=== PATIENT | male | born 1930 | race Caucasian/White ===

== ENCOUNTER 2017-01-03 13:38 | Inpatient (IN) | payer OTHER ==
[~2017-01-03] VITALS: Ht 167.6 cm; Wt 79.4 kg
[~2017-01-03 13:38] MED LIST: ALLO100T PO; AMLO10TA2 PO; ASPI-630 PO; CYAN10005 PO; FURO40TA4 PO; GLIP5TAB10 PO; MULT-208 PO; PRAV80TA2 PO; TRIA15CR3 TP
--- NOTE | 2017-01-03 13:48 | PHYS DOC ---
Past Medical History Past Medical History: CAD, Diabetes-Type II, Hypertension, Renal Disease, Unknown Additional Past Medical Histor: GOUT, HIGH CHOLESTEROL, Past Surgical History: Tonsillectomy Additional Past Surgical Histo: QUAD BIPASS 2006, Alcohol Use: None Drug Use: None Adult General Chief Complaint Chief Complaint: DEHYDRATION HPI HPI Patient is a 86 year old male who presents with nausea. The history is obtained by the because the patient denies any symptoms. She states overnight didn't sleep well because he is complaining about nausea. Denies any vomiting or abdominal pain chest pain or dysuria. Review of Systems Review of Systems Constitutional: Denies fever or chills [] Eyes: Denies change in visual acuity, redness, or eye pain [] HENT: Denies nasal congestion or sore throat [] Respiratory: Denies cough or shortness of breath [] Cardiovascular: No additional information not addressed in HPI [] GI: Denies abdominal pain, nausea, vomiting, bloody stools or diarrhea [] : Denies dysuria or hematuria [] Musculoskeletal: Denies back pain or joint pain [] Integument: Denies rash or skin lesions [] Neurologic: Denies headache, focal weakness or sensory changes [] Endocrine: Denies polyuria or polydipsia [] Current Medications Current Medications Current Medications Medications (Trade) Dose Ordered Sig/Jonathon Start Time Stop Time Status Last Admin Dose Admin Acetaminophen (Tylenol) 650 mg Q4HRS PRN 01/03/17 15:30 Hydroxyzine HCl (Atarax) 10 mg PRN Q6HRS PRN 01/03/17 15:30 Magnesium Hydroxide (Milk Of Magnesia) 2,400 mg DAILY PRN 01/03/17 15:30 Ondansetron HCl (Zofran) 4 mg PRN Q6HRS PRN 01/03/17 15:45 Sodium Chloride 1,000 ml @ 75 mls/hr [id number] 01/03/17 15:30 Allergies Allergies Allergies Coded Allergies Type Severity Reaction Last Updated Verified No Known Allergies Allergy Unknown 08/17/15 Yes Physical Exam Physical Exam Constitutional: Well developed, well nourished, no acute distress, non-toxic appearance. [] HENT: Normocephalic, atraumatic, bilateral external ears normal, oropharynx moist, no oral exudates, nose normal. [] Eyes: PERRLA, EOMI, conjunctiva normal, no discharge. [] Neck: Normal range of motion, no tenderness, supple, no stridor. [] Cardiovascular:Heart rate regular rhythm, no murmur [] Lungs & Thorax: Bilateral breath sounds clear to auscultation [] Abdomen: Bowel sounds normal, soft, no tenderness, no masses, no pulsatile masses. [] Skin: Warm, dry, no erythema, no rash. [] Back: No tenderness, no CVA tenderness. [] Extremities: No tenderness, no cyanosis, no clubbing, ROM intact, no edema. [] Neurologic: Alert and oriented X 3, normal motor function, normal sensory function, no focal deficits noted. [] Psychologic: Affect normal, judgement normal, mood normal. [] Current Patient Data Vital Signs Vital Signs Date Time Temp Pulse Resp B/P (MAP) Pulse Ox O2 Delivery O2 Flow Rate FiO2 01/03/17 13:53 97.6 87 16 113/58 (76) 96 Room Air 97.6 Lab Values Laboratory Tests Test 01/03/17 14:00 White Blood Count 14.2 x10^3/uL (4.0-11.0) H Red Blood Count 4.57 x10^6/uL (4.30-5.70) Hemoglobin 15.1 g/dL (13.0-17.5) Hematocrit 45.6 % (39.0-53.0) Mean Corpuscular Volume 100 fL (79-100) Mean Corpuscular Hemoglobin 33 pg (25-35) Mean Corpuscular Hemoglobin Concent 33 g/dL (31-37) Red Cell Distribution Width 14.4 % (11.5-14.5) Platelet Count 182 x10^3/uL (140-400) Neutrophils (%) (Auto) 81 % (31-73) H Lymphocytes (%) (Auto) 11 % (24-48) L Monocytes (%) (Auto) 6 % (0-9) Eosinophils (%) (Auto) 1 % (0-3) Basophils (%) (Auto) 1 % (0-3) Neutrophils # (Auto) 11.5 x10^3uL (1.8-7.7) H Lymphocytes # (Auto) 1.6 x10^3/uL (1.0-4.8) Monocytes # (Auto) 0.9 x10^3/uL (0.0-1.1) Eosinophils # (Auto) 0.1 x10^3/uL (0.0-0.7) Basophils # (Auto) 0.1 x10^3/uL (0.0-0.2) Sodium Level 132 mmol/L (136-145) L Potassium Level 4.2 mmol/L (3.5-5.1) Chloride Level 98 mmol/L (98-107) Carbon Dioxide Level 24 mmol/L (21-32) Anion Gap 10 (6-14) Blood Urea Nitrogen 54 mg/dL (8-26) H Creatinine 2.2 mg/dL (0.7-1.3) H Estimated GFR (Cockcroft-Gault) 28.7 Glucose Level 180 mg/dL (70-99) H Calcium Level 9.5 mg/dL (8.5-10.1) Total Bilirubin 0.6 mg/dL (0.2-1.0) Direct Bilirubin 0.1 mg/dL (0.0-0.2) Aspartate Amino Transferase (AST) 20 U/L (15-37) Alanine Aminotransferase (ALT) 24 U/L (16-63) Alkaline Phosphatase 76 U/L (46-116) Creatine Kinase 64 U/L (39-308) Creatine Kinase MB (Mass) 2.0 ng/mL (0.0-3.6) Creatine Kinase MB Relative Index 3.1 % (0-4) Total Protein 7.3 g/dL (6.4-8.2) Albumin 3.6 g/dL (3.4-5.0) Laboratory Tests 01/03/17 14:00 Laboratory Tests 01/03/17 14:00 EKG EKG EKG shows irregular rhythm with rate [address] elevations or concerning T-wave inversion, deviation noted, QTC 407 ms, as interpreted by me. Radiology/Procedures Radiology/Procedures [] Impressions: Acute kidney injury Nausea Course & Med Decision Making Course & Med Decision Making Pertinent Labs and Imaging studies reviewed. (See chart for details) Labs show acute kidney injury. Spoke with Dr. Hart who once admitted as a full admission. Dr. Hart wants to write the orders for IV fluids etc. Basic admit orders have been written the patient's agreeable plans in stable condition this time. Dragon Disclaimer Dragon Disclaimer This electronic medical record was generated, in whole or in part, using a voice recognition dictation system. Departure Departure Impression: Primary Impression: Acute kidney failure Disposition: ADMITTED INPATIENT Admitting Physician: Andre Hart Condition: STABLE Referrals: ANDRE HART MD (PCP) Problem Qualifiers Primary Impression: Acute kidney failure Acute renal failure type: unspecified Qualified Codes: N17.9 - Acute kidney failure, unspecified TIFFANIE PADILLA MD Jan 03, 2017 13:48
[2017-01-03 14:07] LABS: BASO # 0.1 x10^3/uL (0.0-0.2); BASO % 1 % (0-3); EOS % 1 % (0-3); HEMATOCRIT 45.6 % (39.0-53.0); HEMOGLOBIN 15.1 g/dL (13.0-17.5); LYMPH # 1.6 x10^3/uL (1.0-4.8); LYMPH % 11 % (24-48); MEAN CORPUSCULAR HEMOGLOBIN 33 pg (25-35); MEAN CORPUSCULAR HGB CONC 33 g/dL (31-37); MEAN CORPUSCULAR VOLUME 100 fL (79-100); MONO % 6 % (0-9); NEUT % 81 % (31-73); PLATELET COUNT 182 x10^3/uL (140-400); RED BLOOD COUNT 4.57 x10^6/uL (4.30-5.70); RED CELL DISTRIBUTION WIDTH 14.4 % (11.5-14.5); WHITE BLOOD COUNT 14.2 x10^3/uL (4.0-11.0)
[2017-01-03 14:14] LABS: CALCIUM 9.5 mg/dL (8.5-10.1); CREATININE 2.2 mg/dL (0.7-1.3); GFR 28.7; POTASSIUM 4.2 mmol/L (3.5-5.1)
[2017-01-03 14:20] LABS: ALBUMIN 3.6 g/dL (3.4-5.0); DIRECT BILIRUBIN 0.1 mg/dL (0.0-0.2); TOTAL BILIRUBIN 0.6 mg/dL (0.2-1.0); TOTAL PROTEIN 7.3 g/dL (6.4-8.2)
[2017-01-03] MEDS ORDERED: MAGNESIUM HYDROXIDE 2,400 MG/30 ML ORAL.SUSP. PO PRN (15:30)
[2017-01-03] MEDS ORDERED: ACETAMINOPHEN 325 MG TABLET. PO PRN (15:30)
[2017-01-03] MEDS ORDERED: hydrOXYzine 10 MG TABLET PO PRN (15:30)
[2017-01-03] MEDS ORDERED: ONDANSETRON PF 4 MG/2 ML VIAL. IV PRN (15:45)
--- NOTE | 2017-01-03 15:50 | PDOC ---
Provider Note Provider Note history and physical dictated # [id number] GOOD ODOM MD Jan 03, 2017 15:50
--- NOTE | 2017-01-03 16:13 | RAD ---
Indication lower chest and abdominal pain. A single view of the chest was obtained. Comparison is made to an examination 08/17/2015. Postoperative changes are noted. Heart size is unchanged. There is some increased density at the right lung base which may be multifactorial. A fat pad is not excluded. There is no consolidated pneumonia. There is no congestive heart failure. A significant change when compared to the previous exam is not seen. IMPRESSION: No acute or focal process. No significant change
--- NOTE | 2017-01-03 16:25 | PDOC2 ---
GI CONSULT Reason For Consult: Esophageal dysphagia per for 3 weeks HPI: HPI: 86 y/o male seen in ER, does most of the talking. She says for 2-3 days he has been uncomfortable and unable to rest. When he drinks or eats, he squirms around like he has back or upper abdominal discomfort. He says foods, liquids, and pills do not get stuck in the esophagus. He has not vomited or felt nauseous. Nothing tastes good - not even water (per his ). He denies reflux and heartburn although did try Tums the past few days w/o relief. No odynophagia. No diarrhea or constipation, last stooled today. No hematochezia or melena. No NSAID use, does take ASA daily. No previous EGD. Colonoscopy ~ 5 years ago, unsure of results although other notes suggest colon polyps and diverticulosis. No liver, gallbladder, or pancreas history. Has had a rash on and off for more than 1 year. PMH: PMH: CAD, HTN, HLD, DM, CKD, gout, dementia, CABG, vasectomy, tonsillectomy FH: Family History: No pertinent hx Social History: Smoke: No ALCOHOL: none Drugs: None ROS: GEN: Denies fevers, chills, sweats HEENT: Denies blurred vision, sore throat CV: Denies chest pain RESP: Denies shortness of air, cough GI: Per HPI : Denies hematuria, dysuria ENDO: Denies weight changes NEURO: +dementia MSK: Denies weakness, joint pain/swelling SKIN:+rash Vitals: Vitals: Vital Signs Date Time Temp Pulse Resp B/P (MAP) Pulse Ox O2 Delivery O2 Flow Rate FiO2 01/03/17 13:53 97.6 87 16 113/58 (76) 96 Room Air 97.6 Labs: Labs: Laboratory Tests Test 01/03/17 14:00 White Blood Count 14.2 x10^3/uL (4.0-11.0) Red Blood Count 4.57 x10^6/uL (4.30-5.70) Hemoglobin 15.1 g/dL (13.0-17.5) Hematocrit 45.6 % (39.0-53.0) Mean Corpuscular Volume 100 fL (79-100) Mean Corpuscular Hemoglobin 33 pg (25-35) Mean Corpuscular Hemoglobin Concent 33 g/dL (31-37) Red Cell Distribution Width 14.4 % (11.5-14.5) Platelet Count 182 x10^3/uL (140-400) Neutrophils (%) (Auto) 81 % (31-73) Lymphocytes (%) (Auto) 11 % (24-48) Monocytes (%) (Auto) 6 % (0-9) Eosinophils (%) (Auto) 1 % (0-3) Basophils (%) (Auto) 1 % (0-3) Neutrophils # (Auto) 11.5 x10^3uL (1.8-7.7) Lymphocytes # (Auto) 1.6 x10^3/uL (1.0-4.8) Monocytes # (Auto) 0.9 x10^3/uL (0.0-1.1) Eosinophils # (Auto) 0.1 x10^3/uL (0.0-0.7) Basophils # (Auto) 0.1 x10^3/uL (0.0-0.2) Sodium Level 132 mmol/L (136-145) Potassium Level 4.2 mmol/L (3.5-5.1) Chloride Level 98 mmol/L (98-107) Carbon Dioxide Level 24 mmol/L (21-32) Anion Gap 10 (6-14) Blood Urea Nitrogen 54 mg/dL (8-26) Creatinine 2.2 mg/dL (0.7-1.3) Estimated GFR (Cockcroft-Gault) 28.7 Glucose Level 180 mg/dL (70-99) Calcium Level 9.5 mg/dL (8.5-10.1) Total Bilirubin 0.6 mg/dL (0.2-1.0) Direct Bilirubin 0.1 mg/dL (0.0-0.2) Aspartate Amino Transf (AST/SGOT) 20 U/L (15-37) Alanine Aminotransferase (ALT/SGPT) 24 U/L (16-63) Alkaline Phosphatase 76 U/L (46-116) Creatine Kinase 64 U/L (39-308) Creatine Kinase MB (Mass) 2.0 ng/mL (0.0-3.6) Creatine Kinase MB Relative Index 3.1 % (0-4) Total Protein 7.3 g/dL (6.4-8.2) Albumin 3.6 g/dL (3.4-5.0) Allergies: Coded Allergies: No Known Allergies (Verified Allergy, Unknown, 08/17/15) Medications: Please see EMR. Imaging: Imaging: CXR PENDING PE: GEN: NAD HEENT: Atraumatic, PERRL LUNGS: CTAB anteriorly HEART: RRR ABD: NABS, S/ND/NT EXTREMITY: No edema SKIN: +rash (arms, torso) NEURO/PSYCH: A & O 3, probably a little confused A/P: A/P: Abnormal deglutition -discomfort in back and upper abd w/ eating and drinking x 2-3 days Rash -per derm -- Will check barium swallow. ?PPI Other per Dr. Mitchell. DALJIT DRISCOLL Jan 03, 2017 16:25
[2017-01-03 16:58] LABS: BILIRUBIN,URINE NEGATIVE (NEG); GLUCOSE,URINE NEGATIVE (NEG); NITRITE,URINE NEGATIVE (NEG); PROTEIN,URINE NEGATIVE (NEG-TRACE); UROBILINOGEN,URINE 0.2 mg/dL (0.2 mg/dL)
[2017-01-03 17:11] LABS: RBC,URINE 0 /HPF (0-2); WBC,URINE OCC /HPF (0-4)
[2017-01-03 17:12] LABS: BACTERIA,URINE 0 /HPF (0-FEW); SQUAMOUS EPITHELIAL CELL,UR OCC /LPF
--- NOTE | 2017-01-03 17:13 | RAD ---
Examination: Ultrasound kidneys History: History of renal injury Comparison: 08/19/2015. Findings: The right kidney measures 10.5 x 4.4 x 5.8 cm The left kidney measures 11.0x 4.8 x 5.1 cm. The evaluation of the lower poles of the bilateral kidneys is somewhat limited. The urinary bladder volume is 653 cc. Bilateral ureteral jets identified. Impression Unremarkable visualized exam. Evaluation of the lower poles of the bilateral kidneys is somewhat limited.
[2017-01-03 17:20] VITALS: BP 104/54
[2017-01-03 19:00] VITALS: BP 104/73
[2017-01-03] MEDS: glipiZIDE 5 MG TABLET PO SCH (19:03)
[2017-01-03] MEDS: IV NORMAL SALINE 1000ML BAG 1,000 ML IV SCH (20:44)
[2017-01-03] MEDS: ATORVASTATIN CALCIUM 20 MG TABLET PO SCH (20:45)
[2017-01-03] MEDS: MINERAL OIL/PETROLATUM TOPICAL CREAM 113GM JAR. TP SCH (20:46)
[2017-01-03] MEDS ORDERED: CLOB15CR TP (22:02)
[2017-01-03 22:57] VITALS: BP 109/65
[2017-01-04 03:00] VITALS: BP 129/55
[2017-01-04] MEDS: IV NORMAL SALINE 1000ML BAG 1,000 ML IV SCH ×2 (04:50→21:54)
--- NOTE | 2017-01-04 04:56 | ACF ---
Admission Forms Criteria RENAL FAILURE, ACUTE (Place 'X' for any and all applicable criteria): Admission is indicated for ALL (I and II) of the following[A](1)(2)(3)(4)(8)(9)( 10)(11)(12): [X]I. Acute renal failure as indicated by 1 or more of the following: [X] a) A 3-fold rise in serum creatinine from baseline b) Serum creatinine > 4 mg/dL (354 mol/L) with an acute rise > 0.5 mg/dL (44.2 mol/L) c) Reduction of > 75% in estimated glomerular filtration rate from baseline d) Estimated glomerular filtration rate < 35 mL/min/1.73m2(0.59 mL/sec/1.73m2 ) in a child up to 18 years of age e) Anuria indicated by ALL the following: i) Adequate volume status ii) Cessation of urine output indicated by 1 or more of the followin) Urine output < 0.3 mL/kg/hr for 24 hours) 2) Anuria (urine output < 0.1 mL/kg/hr) for 12hours [X] II. Renal failure cannot be managed in an outpatient or observational care setting as indicating by 1 or more of the following: a) Altered mental status that is severe or persistent b) Cardiac arrhythmias of immediate concern c) Hemodynamic instability d) Significant respiratory findings (eg, pulmonary edema) that are severe (eg, Hypoxemia) or persist despite observation care treatment (eg, Tachypnea) e) Clinically significant electrolyte abnormality that requires inpatient care (eg, hyperkalemia with severe ECG findings)[B] f) Clinically significant metabolic abnormality (eg, acidosis) that is severe or persistent g) Acute treatment of renal failure (eg, renal replacement therapy ) not feasible or appropriate in observational care setting h) Clinical situation too unstable or uncertain (eg, inadequate urine output, ongoing decline in renal function, etiology unclear) i) Necessary support and caregiver ability to comply with outpatient treatment cannot be arranged in observation care timeframe (eg, within 24 hours) [X] j) Other significant finding or clinical condition judged not to be within scope of observation care III. General contraindications and/or Inappropriate clinical situations for Observational Care in patients with acute renal failure, when ANY ONE of the following is required: a) Prediction of prolongation of LOS based on ANY ONE of the following may be considered as a contraindication for observational care2, 3, 4, 5, 6, 7, 8, 9, 10, 11 i) Age > 65 yrs. ii) Patient arriving by ambulance iii) Patient with high acuity iv) Patient requiring vital sign monitoring v) Patient on IV medication b) Systolic blood pressures = [id number] c) Patient with altered mental status including delirium and other alteration of consciousness3 d) Patient whose discharge disposition will be to a long term home or rehabilitation home should not be managed in Emergency Department Observation Unit. CMS rule requires 3 days hospital stay before such placement3,13 e) Patient with failure to thrive due to broad array of etiologies3, 16,17 f) Inability to ambulate3,14 Extended stay beyond goal length of stay may be needed for [ ]a) Continuing uremic complications(25) [ ]b) Care for comorbidities(26)(27)(28)(29) [ ]c) acute renal failure [ ]d) New need for dialysis (eg, not previously arranged and prepared)(21)( 30) The original [facility] [employer] content created by [facility] has been revised. The portions of the content which have been revised are identified through the use of italic text, and [facility] has neither reviewed nor approved the modified material. All other unmodified content is copyright [facility]. Please see references footnoted in the original [facility] edition 2014 Admission Criteria Met?: Yes EDWARDO AARON Jan 04, 2017 04:56
[2017-01-04 05:40] LABS: BASO % 0 % (0-3); EOS % 1 % (0-3); HEMATOCRIT 40.7 % (39.0-53.0); HEMOGLOBIN 14.1 g/dL (13.0-17.5); LYMPH # 1.1 x10^3/uL (1.0-4.8); LYMPH % 11 % (24-48); MEAN CORPUSCULAR HEMOGLOBIN 34 pg (25-35); MEAN CORPUSCULAR HGB CONC 35 g/dL (31-37); MEAN CORPUSCULAR VOLUME 98 fL (79-100); MONO % 7 % (0-9); NEUT % 81 % (31-73); PLATELET COUNT 149 x10^3/uL (140-400); RED BLOOD COUNT 4.16 x10^6/uL (4.30-5.70); RED CELL DISTRIBUTION WIDTH 14.4 % (11.5-14.5); WHITE BLOOD COUNT 10.3 x10^3/uL (4.0-11.0)
[2017-01-04 06:06] LABS: CALCIUM 9.1 mg/dL (8.5-10.1); CREATININE 1.8 mg/dL (0.7-1.3); GFR 36.1; POTASSIUM 4.2 mmol/L (3.5-5.1)
--- NOTE | 2017-01-04 06:21 | EKG ---
[facility] [address] [place] [address] Test Date: 2017-01-03 Test Time: 16:31:35 Pat Name: ZULLY DELEON Department: Room: 576 1 Gender: M Database Support: : 1930 Requested By: GOOD ODOM Order Number: [id number] Reading MD: Emmanuel Lopez Measurements Intervals [place] Rate: 74 P: MT: QRS: -5 QRSD: 88 T: -3 QT: 362 QTc: 407 Interpretive Statements SUSPECT SR PACS Electronically Signed On 01-07-2017 11:09:26 CDT by Emmanuel Lopez
--- NOTE | 2017-01-04 06:32 | HP ---
ADMIT DATE: 01/03/2017 HISTORY OF PRESENT ILLNESS: The patient is an 86-year-old white male with a history of coronary artery disease, diabetes mellitus type 2 with diabetic nephropathy and chronic kidney disease stage 3 whose baseline serum creatinine is around 1.5, has a history of hypertension and hyperlipidemia, was seen in the office on 01/01/2017 for a followup visit. He did have a rash on his trunk and apparently took some steroid cream in the past, which was prescribed and that was clobetasol topical ointment for this rash in his truck, primarily in the abdomen which is pruritic and he has been scratching. In any case, laboratory tests were done and his BUN was 56, creatinine was 2.06, and his baseline BUN is in the low 30s and baseline serum creatinine is about 1.5. notes that he has had more confusion in the last week or so and has a 3-week history of what appears to be solid food dysphagia. After he swallows food, he is got to adjust his body in certain positions as though the food is not going down. The patient has a significant history of dementia, so he is not a reliable historian and is quite forgetful. The patient was sent to the emergency room as he was not drinking enough fluids and because of acute kidney injury. He has not had any vomiting or diarrhea. In the emergency room, his labs were also abnormal. His BUN was 54 with a creatinine of 2.2. His white count was elevated at 14.2. Denies any cough, dysuria or diarrhea. He is admitted for further evaluation and treatment of his acute kidney injury and metabolic encephalopathy as well as esophageal dysphagia and decreased intake of liquids. ALLERGIES AND INTOLERANCES: None. MEDICATIONS: Prior to admission include allopurinol 200 mg every day, aspirin 81 mg every day, clobetasol 0.05% topical ointment apply b.i.d., glipizide 5 mg b.i.d., lisinopril 20 mg every day, multiple vitamin every day, pravastatin 80 mg every day, vitamin B12 1000 mcg daily. PAST MEDICAL HISTORY: Significant for chronic kidney disease stage 3 with diabetes mellitus type 2 with diabetic nephropathy, hypertension, hyperlipidemia and gout. He has a history of synovitis in the past and has vitamin B12 deficiency. He also has impaired cognitive deficit/dementia. He has had a coronary artery bypass graft surgery in 2006, tonsillectomy, vasectomy, colonoscopy with polypectomy in 2011. He had diverticulosis as well as internal hemorrhoids during his colonoscopy in 2011. His last EGD was in 2014, at that time he had low grade reflux esophagitis and also had a benign-appearing esophageal stricture that was dilated. Colonoscopy had a tubular adenoma, diverticulosis and internal hemorrhoids. SOCIAL HISTORY: Does not drink alcohol nor does he smoke cigarettes. He is an independent ambulator. FAMILY HISTORY: Positive for his father had Alzheimer's disease as well as colon cancer and his brother had diabetes mellitus and hypertension. REVIEW OF SYSTEMS: GENERAL: There has been no fever, chills or sweats in the last few days. CARDIOVASCULAR: No chest pain. PULMONARY: No cough or shortness of breath. GASTROINTESTINAL: No constipation. SKIN: No rashes. NEUROLOGIC: He has been more confused. ENDOCRINE: He has diabetes mellitus. The rest of systems reviewed are negative except as stated in history of present illness. PHYSICAL EXAMINATION: VITAL SIGNS: Temperature is 97.6 degrees, apical pulse is regular at 87, respiratory rate 16, blood pressure 113/58, oxygen saturation 96% room air. HEENT: Eyes: Gaze is conjugate. Extraocular muscles are intact. Mouth: Tongue is midline. NECK: There is no cervical lymphadenopathy or thyroid enlargement. HEART: Reveals S1, S2. There is no S3 or murmur. LUNGS: Clear. ABDOMEN: Soft with no hepatosplenomegaly, masses or tenderness. EXTREMITIES: Lower extremities without edema. SKIN: He does have a rash. He has got a maculopapular rash with excoriation noted on his abdomen. Little bit on the lower back. His skin is dry. NEUROLOGIC: Cognition: He does not know the year, but he knows the place is [facility]. He has got 5/5 bilateral hand overhauler and biceps strength. Able to dorsi and plantar flex his feet, bend his knees and raise his legs off the bed. LABORATORY DATA REVIEW: White count was elevated at 14.2, hemoglobin 15.1, platelet count 182,000, 81 polys and 11 lymphocytes. Serum sodium is 132, potassium 4.2, chloride 98, total CO2 of 24, BUN increased to 54, creatinine increased to 2.2, blood sugar 180. Liver function tests normal. His albumin was 3.6. CPK 64. ASSESSMENT: 1. Acute kidney injury on top of chronic kidney disease stage 3. Suspect this is decreased due to decreased intake of fluid, perhaps aggravated by his esophageal stricture also. 2. Diabetes mellitus type 2 with diabetic nephropathy. 3. Chronic kidney disease stage 3. 4. Hypertension. 5. Hyperlipidemia. 6. History of gout. 7. Coronary artery disease with previous coronary bypass graft surgery. 8. History of dilatation of esophageal stricture in 2014. 9. Leukocytosis. 10. Rash with dry skin. 11. Impaired cognition/dementia. 12. Metabolic encephalopathy. PLAN: So the plan at this time is to admit him to the hospital, he is a full admit. We will start him on IV fluids with normal saline as he has hyponatremia, and we will at 75 mL an hour. We will get a renal ultrasound, obtain a urinalysis, we will put him on a full liquid diet and we will consult Dr. Mitchell for an evaluation of an EGD and possible esophageal dilatation. Consult Dr. Goodson for his rash and put him on hydroxyzine for the itching and a skin moisturizer b.i.d., and we will also consult Dr. Sim for nephrology for his acute kidney injury on top of chronic kidney disease. We will get a renal ultrasound to rule out hydronephrosis also. Discontinue the lisinopril with acute kidney injury, decrease the allopurinol to 100 mg every day for the same reason. We will order SCDs for deep vein thrombosis prophylaxis. Recheck his labs again tomorrow. We will resume his other home medications and monitor his blood sugars. GOOD ODOM MD DR: BERTO/brijesh JOB#: [id number] / [id number]
[2017-01-04 07:00] VITALS: BP 137/74
[2017-01-04] MEDS ORDERED: SIMETHICONE/SOD BICARB/CITRIC ACID PACKET. PO ONE (08:00)
[2017-01-04] MEDS ORDERED: BARIUM SULFATE 60% 355 ML SUSP PO ONE (08:00)
[2017-01-04] MEDS ORDERED: BARIUM SULFATE 340 GM SUSPENSION. PO ONE (08:30)
[2017-01-04] MEDS: MINERAL OIL/PETROLATUM TOPICAL CREAM 113GM JAR. TP SCH ×2 (09:00→21:00)
--- NOTE | 2017-01-04 09:00 | PDOC ---
PROGRESS NOTES Subjective Subjective returned from barium swallow. confused. will get ct brain without contrast. on full liquid diet. lab reviewed. renal ultrasound without hydronephrosis. complained of stomach burning with eating. will start protonix Objective Objective Vital Signs Date Time Temp Pulse Resp B/P (MAP) Pulse Ox O2 Delivery O2 Flow Rate FiO2 01/04/17 03:00 98.3 74 17 129/55 (79) 100 Room Air 98.3 Physical Exam Abdomen: Soft Heart: Regular rate, Normal S1, Normal S2 Extremities: No edema General: Alert HEENT: Atraumatic Lungs: Clear to auscultation Neck: Supple Neuro: Normal speech Psych/Mental Status: Other (confused) Skin: No rashes Assessment Assessment 1. Acute kidney injury on top of chronic kidney disease stage 3. Suspect this is decreased due to decreased intake of fluid, perhaps aggravated by his esophageal stricture also. 2. Diabetes mellitus type 2 with diabetic nephropathy. 3. Chronic kidney disease stage 3. 4. Hypertension. 5. Hyperlipidemia. 6. History of gout. 7. Coronary artery disease with previous coronary bypass graft surgery. 8. History of dilatation of esophageal stricture in 2014. 9. Leukocytosis.resolved 10. Rash with dry skin. 11. Impaired cognition/dementia. 12. Metabolic encephalopathy. Plan Plan of Care ct brain without iv contrast iv fluids barium swallow report pending start protonix full liquid diet Comment Review of Relevant I have reviewed the following items otis (where applicable) has been applied. Labs Laboratory Tests Test 01/03/17 14:00 01/03/17 16:50 01/03/17 17:11 01/03/17 20:45 White Blood Count 14.2 x10^3/uL (4.0-11.0) Red Blood Count 4.57 x10^6/uL (4.30-5.70) Hemoglobin 15.1 g/dL (13.0-17.5) Hematocrit 45.6 % (39.0-53.0) Mean Corpuscular Volume 100 fL (79-100) Mean Corpuscular Hemoglobin 33 pg (25-35) Mean Corpuscular Hemoglobin Concent 33 g/dL (31-37) Red Cell Distribution Width 14.4 % (11.5-14.5) Platelet Count 182 x10^3/uL (140-400) Neutrophils (%) (Auto) 81 % (31-73) Lymphocytes (%) (Auto) 11 % (24-48) Monocytes (%) (Auto) 6 % (0-9) Eosinophils (%) (Auto) 1 % (0-3) Basophils (%) (Auto) 1 % (0-3) Neutrophils # (Auto) 11.5 x10^3uL (1.8-7.7) Lymphocytes # (Auto) 1.6 x10^3/uL (1.0-4.8) Monocytes # (Auto) 0.9 x10^3/uL (0.0-1.1) Eosinophils # (Auto) 0.1 x10^3/uL (0.0-0.7) Basophils # (Auto) 0.1 x10^3/uL (0.0-0.2) Sodium Level 132 mmol/L (136-145) Potassium Level 4.2 mmol/L (3.5-5.1) Chloride Level 98 mmol/L (98-107) Carbon Dioxide Level 24 mmol/L (21-32) Anion Gap 10 (6-14) Blood Urea Nitrogen 54 mg/dL (8-26) Creatinine 2.2 mg/dL (0.7-1.3) Estimated GFR (Cockcroft-Gault) 28.7 Glucose Level 180 mg/dL (70-99) Calcium Level 9.5 mg/dL (8.5-10.1) Total Bilirubin 0.6 mg/dL (0.2-1.0) Direct Bilirubin 0.1 mg/dL (0.0-0.2) Aspartate Amino Transf (AST/SGOT) 20 U/L (15-37) Alanine Aminotransferase (ALT/SGPT) 24 U/L (16-63) Alkaline Phosphatase 76 U/L (46-116) Creatine Kinase 64 U/L (39-308) Creatine Kinase MB (Mass) 2.0 ng/mL (0.0-3.6) Creatine Kinase MB Relative Index 3.1 % (0-4) Total Protein 7.3 g/dL (6.4-8.2) Albumin 3.6 g/dL (3.4-5.0) Urine Color Yellow Urine Clarity Clear Urine pH 5.0 Urine Specific [place] 1.015 Urine Protein Negative mg/dL (NEG-TRACE) Urine Glucose (UA) Negative mg/dL (NEG) Urine Ketones (Stick) Negative mg/dL (NEG) Urine Blood Negative (NEG) Urine Nitrite Negative (NEG) Urine Bilirubin Negative (NEG) Urine Urobilinogen Dipstick 0.2 mg/dL (0.2 mg/dL) Urine Leukocyte Esterase Negative (NEG) Urine RBC 0 /HPF (0-2) Urine WBC Occ /HPF (0-4) Urine Squamous Epithelial Cells Occ /LPF Urine Bacteria 0 /HPF (0-FEW) Urine Hyaline Casts Occasional /HPF Urine Mucus Mod /LPF Glucose (Fingerstick) 159 mg/dL (70-99) 208 mg/dL (70-99) Test 01/04/17 05:17 01/04/17 08:50 White Blood Count 10.3 x10^3/uL (4.0-11.0) Red Blood Count 4.16 x10^6/uL (4.30-5.70) Hemoglobin 14.1 g/dL (13.0-17.5) Hematocrit 40.7 % (39.0-53.0) Mean Corpuscular Volume 98 fL (79-100) Mean Corpuscular Hemoglobin 34 pg (25-35) Mean Corpuscular Hemoglobin Concent 35 g/dL (31-37) Red Cell Distribution Width 14.4 % (11.5-14.5) Platelet Count 149 x10^3/uL (140-400) Neutrophils (%) (Auto) 81 % (31-73) Lymphocytes (%) (Auto) 11 % (24-48) Monocytes (%) (Auto) 7 % (0-9) Eosinophils (%) (Auto) 1 % (0-3) Basophils (%) (Auto) 0 % (0-3) Neutrophils # (Auto) 8.3 x10^3uL (1.8-7.7) Lymphocytes # (Auto) 1.1 x10^3/uL (1.0-4.8) Monocytes # (Auto) 0.7 x10^3/uL (0.0-1.1) Eosinophils # (Auto) 0.1 x10^3/uL (0.0-0.7) Basophils # (Auto) 0.0 x10^3/uL (0.0-0.2) Sodium Level 132 mmol/L (136-145) Potassium Level 4.2 mmol/L (3.5-5.1) Chloride Level 103 mmol/L (98-107) Carbon Dioxide Level 21 mmol/L (21-32) Anion Gap 8 (6-14) Blood Urea Nitrogen 51 mg/dL (8-26) Creatinine 1.8 mg/dL (0.7-1.3) Estimated GFR (Cockcroft-Gault) 36.1 Glucose Level 177 mg/dL (70-99) Calcium Level 9.1 mg/dL (8.5-10.1) Glucose (Fingerstick) 177 mg/dL (70-99) Laboratory Tests Test 01/03/17 14:00 01/03/17 16:50 01/03/17 17:11 01/03/17 20:45 White Blood Count 14.2 x10^3/uL (4.0-11.0) Red Blood Count 4.57 x10^6/uL (4.30-5.70) Hemoglobin 15.1 g/dL (13.0-17.5) Hematocrit 45.6 % (39.0-53.0) Mean Corpuscular Volume 100 fL (79-100) Mean Corpuscular Hemoglobin 33 pg (25-35) Mean Corpuscular Hemoglobin Concent 33 g/dL (31-37) Red Cell Distribution Width 14.4 % (11.5-14.5) Platelet Count 182 x10^3/uL (140-400) Neutrophils (%) (Auto) 81 % (31-73) Lymphocytes (%) (Auto) 11 % (24-48) Monocytes (%) (Auto) 6 % (0-9) Eosinophils (%) (Auto) 1 % (0-3) Basophils (%) (Auto) 1 % (0-3) Neutrophils # (Auto) 11.5 x10^3uL (1.8-7.7) Lymphocytes # (Auto) 1.6 x10^3/uL (1.0-4.8) Monocytes # (Auto) 0.9 x10^3/uL (0.0-1.1) Eosinophils # (Auto) 0.1 x10^3/uL (0.0-0.7) Basophils # (Auto) 0.1 x10^3/uL (0.0-0.2) Sodium Level 132 mmol/L (136-145) Potassium Level 4.2 mmol/L (3.5-5.1) Chloride Level 98 mmol/L (98-107) Carbon Dioxide Level 24 mmol/L (21-32) Anion Gap 10 (6-14) Blood Urea Nitrogen 54 mg/dL (8-26) Creatinine 2.2 mg/dL (0.7-1.3) Estimated GFR (Cockcroft-Gault) 28.7 Glucose Level 180 mg/dL (70-99) Calcium Level 9.5 mg/dL (8.5-10.1) Total Bilirubin 0.6 mg/dL (0.2-1.0) Direct Bilirubin 0.1 mg/dL (0.0-0.2) Aspartate Amino Transf (AST/SGOT) 20 U/L (15-37) Alanine Aminotransferase (ALT/SGPT) 24 U/L (16-63) Alkaline Phosphatase 76 U/L (46-116) Creatine Kinase 64 U/L (39-308) Creatine Kinase MB (Mass) 2.0 ng/mL (0.0-3.6) Creatine Kinase MB Relative Index 3.1 % (0-4) Total Protein 7.3 g/dL (6.4-8.2) Albumin 3.6 g/dL (3.4-5.0) Urine Color Yellow Urine Clarity Clear Urine pH 5.0 Urine Specific [place] 1.015 Urine Protein Negative mg/dL (NEG-TRACE) Urine Glucose (UA) Negative mg/dL (NEG) Urine Ketones (Stick) Negative mg/dL (NEG) Urine Blood Negative (NEG) Urine Nitrite Negative (NEG) Urine Bilirubin Negative (NEG) Urine Urobilinogen Dipstick 0.2 mg/dL (0.2 mg/dL) Urine Leukocyte Esterase Negative (NEG) Urine RBC 0 /HPF (0-2) Urine WBC Occ /HPF (0-4) Urine Squamous Epithelial Cells Occ /LPF Urine Bacteria 0 /HPF (0-FEW) Urine Hyaline Casts Occasional /HPF Urine Mucus Mod /LPF Glucose (Fingerstick) 159 mg/dL (70-99) 208 mg/dL (70-99) Test 01/04/17 05:17 01/04/17 08:50 White Blood Count 10.3 x10^3/uL (4.0-11.0) Red Blood Count 4.16 x10^6/uL (4.30-5.70) Hemoglobin 14.1 g/dL (13.0-17.5) Hematocrit 40.7 % (39.0-53.0) Mean Corpuscular Volume 98 fL (79-100) Mean Corpuscular Hemoglobin 34 pg (25-35) Mean Corpuscular Hemoglobin Concent 35 g/dL (31-37) Red Cell Distribution Width 14.4 % (11.5-14.5) Platelet Count 149 x10^3/uL (140-400) Neutrophils (%) (Auto) 81 % (31-73) Lymphocytes (%) (Auto) 11 % (24-48) Monocytes (%) (Auto) 7 % (0-9) Eosinophils (%) (Auto) 1 % (0-3) Basophils (%) (Auto) 0 % (0-3) Neutrophils # (Auto) 8.3 x10^3uL (1.8-7.7) Lymphocytes # (Auto) 1.1 x10^3/uL (1.0-4.8) Monocytes # (Auto) 0.7 x10^3/uL (0.0-1.1) Eosinophils # (Auto) 0.1 x10^3/uL (0.0-0.7) Basophils # (Auto) 0.0 x10^3/uL (0.0-0.2) Sodium Level 132 mmol/L (136-145) Potassium Level 4.2 mmol/L (3.5-5.1) Chloride Level 103 mmol/L (98-107) Carbon Dioxide Level 21 mmol/L (21-32) Anion Gap 8 (6-14) Blood Urea Nitrogen 51 mg/dL (8-26) Creatinine 1.8 mg/dL (0.7-1.3) Estimated GFR (Cockcroft-Gault) 36.1 Glucose Level 177 mg/dL (70-99) Calcium Level 9.1 mg/dL (8.5-10.1) Glucose (Fingerstick) 177 mg/dL (70-99) Medications Current Medications Acetaminophen (Tylenol) 650 mg Q4HRS PRN PO MILD PAIN / TEMP; Start 01/03/17 at 15:30 Magnesium Hydroxide (Milk Of Magnesia) 2,400 mg DAILY PRN PO CONSTIPATION; Start 01/03/17 at 15:30 Allopurinol (Zyloprim) 100 mg DAILY PO ; Start 01/04/17 at 09:00 Aspirin (Ecotrin) 81 mg DAILYWBKFT PO ; Start 01/04/17 at 08:00 Sodium Chloride 1,000 ml @ 75 mls/hr [id number] IV Last administered on 20:44; Start 01/03/17 at 15:30 Glipizide (Glucotrol) 5 mg BIDBFRMEAL PO Last administered on 01/03/17 19:03; Start 01/03/17 at 16:30 Atorvastatin Calcium (Lipitor) 20 mg QHS PO Last administered on 01/03/17 20: 45; Start 01/03/17 at 21:00 Cyanocobalamin (Vitamin B-12) 1,000 mcg DAILY PO ; Start 01/04/17 at 09:00 Multivitamins (Thera M Plus) 1 tab DAILY PO ; Start 01/04/17 at 09:00 Hydroxyzine HCl (Atarax) 10 mg PRN Q6HRS PRN PO ITCHING; Start 01/03/17 at 15: 30 Multi-Ingred Cream/Lotion/Oil/ Oint (Hydrocerin) 1 gemma BID TP ; Start 01/03/17 at 21:00 Ondansetron HCl (Zofran) 4 mg PRN Q6HRS PRN IV NAUSEA/VOMITING; Start 01/03/17 at 15:45 Barium Sulfate (Liquid E-Z Paque) 355 ml 1X ONCE PO Last administered on 08:29; Start 01/04/17 at 08:00; Stop 01/04/17 at 08:01; Status DC Simethicone/ Sodium Bicarb/ Citric Ac (E-Z-Gas) 1 packet 1X ONCE PO ; Start at 08:00; Stop 01/04/17 at 08:01; Status DC Barium Sulfate (E-Z-Hd) 340 gm 1X ONCE PO Last administered on 01/04/17 08:33 ; Start 01/04/17 at 08:30; Stop 01/04/17 at 08:32; Status DC Active Scripts Active Triamcinolone Acetonide 0.1% Cream (Triamcinolone Acetonide) 15 Gm Cream..g. 1 Gemma TP BID Reported Clobetasol Propionate 15 Gm Cream..g. 1 Gemma TP PRN BID PRN Pravastatin Sodium 80 Mg Tablet 1 Tab PO DAILY LAST DOSE: 08/20/15 NEXT DOSE: 08/21/15 Furosemide 40 Mg Tablet 1 Tab PO DAILY LAST DOSE: 08/20/15 NEXT DOSE: 08/21/15 AM Vitamin B-12 (Cyanocobalamin (Vitamin B-12)) 1,000 Mcg Tablet 1 Tab PO DAILY LAST DOSE: 08/20/15 NEXT DOSE: 08/21/15 Vitamin B-12 (Cyanocobalamin (Vitamin B-12)) 1,000 Mcg Tablet 1 Tab PO DAILY LAST DOSE: 08/20/15 NEXT DOSE: 08/21/15 Amlodipine Besylate 10 Mg Tablet 10 Mg PO DAILY LAST DOSE: 08/20/15 NEXT DOSE: 08/21/15 Allopurinol 100 Mg Tablet 100 Mg PO BID LAST DOSE: 08/20/15 NEXT DOSE: 08/20/15 PM Glipizide 5 Mg Tablet 1 Tab PO DAILY LAST DOSE: 08/20/15 NEXT DOSE: 08/21/15 Multi-Day Vitamins (Multivitamin) 1 Each Tablet 1 Each PO DAILY LAST DOSE: 08/20/15 NEXT DOSE: 08/21/15 Aspirin 81 Mg Tab.chew 1 Tab PO DAILY LAST DOSE: 08/20/15 NEXT DOSE: 08/21/15 AM Vitals/I & O Vital Sign - Last 24 Hours 01/03/17 01/03/17 01/03/17 01/03/17 13:53 14:20 14:50 15:20 Temp 97.6 97.6 Pulse 87 65 62 Resp 16 20 21 20 B/P (MAP) 113/58 (76) 118/54 (75) 111/59 (76) 142/53 (82) Pulse Ox 96 93 95 95 O2 Delivery Room Air Room Air 01/03/17 01/03/17 01/03/17 01/03/17 15:50 17:20 19:00 21:31 Temp 97.5 98.3 97.5 98.3 Pulse 87 65 66 Resp 22 18 15 B/P (MAP) 107/52 (70) 104/54 (71) 104/73 (83) Pulse Ox 94 97 96 O2 Delivery Room Air Room Air Room Air Room Air 01/03/17 01/04/17 22:57 03:00 Temp 98.1 98.3 98.1 98.3 Pulse 69 74 Resp 18 17 B/P (MAP) 109/65 (80) 129/55 (79) Pulse Ox 94 100 O2 Delivery Room Air Room Air GOOD ODOM MD Jan 04, 2017 09:00
--- NOTE | 2017-01-04 09:50 | RAD ---
CT head without contrast History: Altered mental status. Comparison: None. Procedure: Axial images are obtained of the head from the skull base through the vertex without IV contrast. Findings: Prominent appearing sulci likely age-related cerebral atrophy changes. The lateral ventricles and the third ventricle are prominent could be age-related cerebral atrophic changes or normal pressure hydrocephalus. No mass-effect, intracranial mass, midline shift, hemorrhage or obvious acute infarction is identified. Basilar cisterns are patent. Bone windows demonstrate no significant calvarial abnormality. The visualized paranasal sinuses appear clear. Impression: 1. Prominent appearing lateral ventricles and third ventricle could be age-related cerebral atrophic changes or normal pressure hydrocephalus. Correlate clinically.. PQRS Compliance Statement: One or more of the following individualized dose reduction techniques were utilized for this examination: 1. Automated exposure control 2. Adjustment of the mA and/or kV according to patient size 3. Use of iterative reconstruction technique
--- NOTE | 2017-01-04 10:36 | PDOC2 ---
CONSULT Date of Consult Date of Consult DATE: 01/04/17 TIME: 10:30 Reason for Consult Reason for Consult: RENAL FAILURE Referring Physician Referring Physician: ILENE Identification/Chief Complaint Chief Complaint ABNORMAL LABS Problems: Source Source: Chart review History of Present Illness Reason for Visit: THIS IS AN 86 YR OLD ADMITTED WITH ABNORMAL LABS. HE HAS NOT BEEN EATING WELL AND MORE CONFUSED THAN USUAL. HIS CR IS 2.2 C/W CARMELO. HE HAS CKD STAGE 3 WITH CR OF 1.5-1.6 AT BASELINE. HE CANNOT GIVE MUCH HX DUE TO HIS DEMENTIA. LYTES AND ACID BASE BALANCE REASONABLY STABLE Past Medical History Cardiovascular: CAD, HTN, Hyperlipidemia CENTRAL NERVOUS SYSTEM: Dementia GI: Constipation, GERD, Other (TUBULAR ADENOMA, ESOPHAGEAL STRICTURE) Musculoskeletal: Other (GOUT) Renal/: Chronic renal insuff Past Surgical History Past Surgical History: CABG Family History Family History: No Significant Social History No ALCOHOL: none Drugs: None Current Medications Current Medications Current Medications Acetaminophen (Tylenol) 650 mg Q4HRS PRN PO MILD PAIN / TEMP; Start 01/03/17 at 15:30 Magnesium Hydroxide (Milk Of Magnesia) 2,400 mg DAILY PRN PO CONSTIPATION; Start 01/03/17 at 15:30 Allopurinol (Zyloprim) 100 mg DAILY PO ; Start 01/04/17 at 09:00 Aspirin (Ecotrin) 81 mg DAILYWBKFT PO ; Start 01/04/17 at 08:00 Sodium Chloride 1,000 ml @ 75 mls/hr [id number] IV Last administered on 20:44; Start 01/03/17 at 15:30 Glipizide (Glucotrol) 5 mg BIDBFRMEAL PO Last administered on 01/03/17 19:03; Start 01/03/17 at 16:30 Atorvastatin Calcium (Lipitor) 20 mg QHS PO Last administered on 01/03/17 20: 45; Start 01/03/17 at 21:00 Cyanocobalamin (Vitamin B-12) 1,000 mcg DAILY PO ; Start 01/04/17 at 09:00 Multivitamins (Thera M Plus) 1 tab DAILY PO ; Start 01/04/17 at 09:00 Hydroxyzine HCl (Atarax) 10 mg PRN Q6HRS PRN PO ITCHING; Start 01/03/17 at 15: 30 Multi-Ingred Cream/Lotion/Oil/ Oint (Hydrocerin) 1 gemma BID TP ; Start 01/03/17 at 21:00 Ondansetron HCl (Zofran) 4 mg PRN Q6HRS PRN IV NAUSEA/VOMITING; Start 01/03/17 at 15:45 Barium Sulfate (Liquid E-Z Paque) 355 ml 1X ONCE PO Last administered on 08:29; Start 01/04/17 at 08:00; Stop 01/04/17 at 08:01; Status DC Simethicone/ Sodium Bicarb/ Citric Ac (E-Z-Gas) 1 packet 1X ONCE PO ; Start at 08:00; Stop 01/04/17 at 08:01; Status DC Barium Sulfate (E-Z-Hd) 340 gm 1X ONCE PO Last administered on 01/04/17 08:33 ; Start 01/04/17 at 08:30; Stop 01/04/17 at 08:32; Status DC Pantoprazole Sodium (Protonix) 40 mg DAILYAC PO ; Start 01/04/17 at 11:30 Active Scripts Active Triamcinolone Acetonide 0.1% Cream (Triamcinolone Acetonide) 15 Gm Cream..g. 1 Gemma TP BID Reported Clobetasol Propionate 15 Gm Cream..g. 1 Gemma TP PRN BID PRN Pravastatin Sodium 80 Mg Tablet 1 Tab PO DAILY LAST DOSE: 08/20/15 AM NEXT DOSE: 08/21/15 AM Furosemide 40 Mg Tablet 1 Tab PO DAILY LAST DOSE: 08/20/15 AM NEXT DOSE: 08/21/15 AM Vitamin B-12 (Cyanocobalamin (Vitamin B-12)) 1,000 Mcg Tablet 1 Tab PO DAILY LAST DOSE: 08/20/15 AM NEXT DOSE: 08/21/15 AM Vitamin B-12 (Cyanocobalamin (Vitamin B-12)) 1,000 Mcg Tablet 1 Tab PO DAILY LAST DOSE: 08/20/15 AM NEXT DOSE: 08/21/15 AM Amlodipine Besylate 10 Mg Tablet 10 Mg PO DAILY LAST DOSE: 08/20/15 AM NEXT DOSE: 08/21/15 AM Allopurinol 100 Mg Tablet 100 Mg PO BID LAST DOSE: 08/20/15 AM NEXT DOSE: 08/20/15 PM Glipizide 5 Mg Tablet 1 Tab PO DAILY LAST DOSE: 08/20/15 AM NEXT DOSE: 08/21/15 AM Multi-Day Vitamins (Multivitamin) 1 Each Tablet 1 Each PO DAILY LAST DOSE: 08/20/15 NEXT DOSE: 08/21/15 AM Aspirin 81 Mg Tab.chew 1 Tab PO DAILY LAST DOSE: 08/20/15 AM NEXT DOSE: 08/21/15 AM Allergies Allergies: Coded Allergies: No Known Allergies (Verified Allergy, Unknown, 08/17/15) ROS Review of System UNABLE TO OBTAIN Physical Exam General: Cooperative, No acute distress HEENT: EOMI, Other (DRY MUCOSA) Lungs: Clear to auscultation Heart: Regular rate Abdomen: Normal bowel sounds, Soft Extremities: No clubbing, No edema Skin: No rashes Neuro: Other (CONFUSED BUT NO ASYMMETRY) Psych/Mental Status: Other (CONFUSED) MUSCULOSKELETAL: Other (DIFFUSE MUSCLE ATROPHY) Vitals VITALS Vital Signs Date Time Temp Pulse Resp B/P (MAP) Pulse Ox O2 Delivery O2 Flow Rate FiO2 01/04/17 07:00 98.3 64 16 137/74 (95) 94 Room Air 98.3 Labs Labs Laboratory Tests Test 01/03/17 14:00 01/03/17 16:50 01/03/17 17:11 01/03/17 20:45 White Blood Count 14.2 x10^3/uL (4.0-11.0) Red Blood Count 4.57 x10^6/uL (4.30-5.70) Hemoglobin 15.1 g/dL (13.0-17.5) Hematocrit 45.6 % (39.0-53.0) Mean Corpuscular Volume 100 fL (79-100) Mean Corpuscular Hemoglobin 33 pg (25-35) Mean Corpuscular Hemoglobin Concent 33 g/dL (31-37) Red Cell Distribution Width 14.4 % (11.5-14.5) Platelet Count 182 x10^3/uL (140-400) Neutrophils (%) (Auto) 81 % (31-73) Lymphocytes (%) (Auto) 11 % (24-48) Monocytes (%) (Auto) 6 % (0-9) Eosinophils (%) (Auto) 1 % (0-3) Basophils (%) (Auto) 1 % (0-3) Neutrophils # (Auto) 11.5 x10^3uL (1.8-7.7) Lymphocytes # (Auto) 1.6 x10^3/uL (1.0-4.8) Monocytes # (Auto) 0.9 x10^3/uL (0.0-1.1) Eosinophils # (Auto) 0.1 x10^3/uL (0.0-0.7) Basophils # (Auto) 0.1 x10^3/uL (0.0-0.2) Sodium Level 132 mmol/L (136-145) Potassium Level 4.2 mmol/L (3.5-5.1) Chloride Level 98 mmol/L (98-107) Carbon Dioxide Level 24 mmol/L (21-32) Anion Gap 10 (6-14) Blood Urea Nitrogen 54 mg/dL (8-26) Creatinine 2.2 mg/dL (0.7-1.3) Estimated GFR (Cockcroft-Gault) 28.7 Glucose Level 180 mg/dL (70-99) Calcium Level 9.5 mg/dL (8.5-10.1) Total Bilirubin 0.6 mg/dL (0.2-1.0) Direct Bilirubin 0.1 mg/dL (0.0-0.2) Aspartate Amino Transf (AST/SGOT) 20 U/L (15-37) Alanine Aminotransferase (ALT/SGPT) 24 U/L (16-63) Alkaline Phosphatase 76 U/L (46-116) Creatine Kinase 64 U/L (39-308) Creatine Kinase MB (Mass) 2.0 ng/mL (0.0-3.6) Creatine Kinase MB Relative Index 3.1 % (0-4) Total Protein 7.3 g/dL (6.4-8.2) Albumin 3.6 g/dL (3.4-5.0) Urine Color Yellow Urine Clarity Clear Urine pH 5.0 Urine Specific [place] 1.015 Urine Protein Negative mg/dL (NEG-TRACE) Urine Glucose (UA) Negative mg/dL (NEG) Urine Ketones (Stick) Negative mg/dL (NEG) Urine Blood Negative (NEG) Urine Nitrite Negative (NEG) Urine Bilirubin Negative (NEG) Urine Urobilinogen Dipstick 0.2 mg/dL (0.2 mg/dL) Urine Leukocyte Esterase Negative (NEG) Urine RBC 0 /HPF (0-2) Urine WBC Occ /HPF (0-4) Urine Squamous Epithelial Cells Occ /LPF Urine Bacteria 0 /HPF (0-FEW) Urine Hyaline Casts Occasional /HPF Urine Mucus Mod /LPF Glucose (Fingerstick) 159 mg/dL (70-99) 208 mg/dL (70-99) Test 01/04/17 05:17 01/04/17 08:50 White Blood Count 10.3 x10^3/uL (4.0-11.0) Red Blood Count 4.16 x10^6/uL (4.30-5.70) Hemoglobin 14.1 g/dL (13.0-17.5) Hematocrit 40.7 % (39.0-53.0) Mean Corpuscular Volume 98 fL (79-100) Mean Corpuscular Hemoglobin 34 pg (25-35) Mean Corpuscular Hemoglobin Concent 35 g/dL (31-37) Red Cell Distribution Width 14.4 % (11.5-14.5) Platelet Count 149 x10^3/uL (140-400) Neutrophils (%) (Auto) 81 % (31-73) Lymphocytes (%) (Auto) 11 % (24-48) Monocytes (%) (Auto) 7 % (0-9) Eosinophils (%) (Auto) 1 % (0-3) Basophils (%) (Auto) 0 % (0-3) Neutrophils # (Auto) 8.3 x10^3uL (1.8-7.7) Lymphocytes # (Auto) 1.1 x10^3/uL (1.0-4.8) Monocytes # (Auto) 0.7 x10^3/uL (0.0-1.1) Eosinophils # (Auto) 0.1 x10^3/uL (0.0-0.7) Basophils # (Auto) 0.0 x10^3/uL (0.0-0.2) Sodium Level 132 mmol/L (136-145) Potassium Level 4.2 mmol/L (3.5-5.1) Chloride Level 103 mmol/L (98-107) Carbon Dioxide Level 21 mmol/L (21-32) Anion Gap 8 (6-14) Blood Urea Nitrogen 51 mg/dL (8-26) Creatinine 1.8 mg/dL (0.7-1.3) Estimated GFR (Cockcroft-Gault) 36.1 Glucose Level 177 mg/dL (70-99) Calcium Level 9.1 mg/dL (8.5-10.1) Glucose (Fingerstick) 177 mg/dL (70-99) Laboratory Tests Test 01/03/17 14:00 01/03/17 16:50 01/03/17 17:11 01/03/17 20:45 White Blood Count 14.2 x10^3/uL (4.0-11.0) Red Blood Count 4.57 x10^6/uL (4.30-5.70) Hemoglobin 15.1 g/dL (13.0-17.5) Hematocrit 45.6 % (39.0-53.0) Mean Corpuscular Volume 100 fL (79-100) Mean Corpuscular Hemoglobin 33 pg (25-35) Mean Corpuscular Hemoglobin Concent 33 g/dL (31-37) Red Cell Distribution Width 14.4 % (11.5-14.5) Platelet Count 182 x10^3/uL (140-400) Neutrophils (%) (Auto) 81 % (31-73) Lymphocytes (%) (Auto) 11 % (24-48) Monocytes (%) (Auto) 6 % (0-9) Eosinophils (%) (Auto) 1 % (0-3) Basophils (%) (Auto) 1 % (0-3) Neutrophils # (Auto) 11.5 x10^3uL (1.8-7.7) Lymphocytes # (Auto) 1.6 x10^3/uL (1.0-4.8) Monocytes # (Auto) 0.9 x10^3/uL (0.0-1.1) Eosinophils # (Auto) 0.1 x10^3/uL (0.0-0.7) Basophils # (Auto) 0.1 x10^3/uL (0.0-0.2) Sodium Level 132 mmol/L (136-145) Potassium Level 4.2 mmol/L (3.5-5.1) Chloride Level 98 mmol/L (98-107) Carbon Dioxide Level 24 mmol/L (21-32) Anion Gap 10 (6-14) Blood Urea Nitrogen 54 mg/dL (8-26) Creatinine 2.2 mg/dL (0.7-1.3) Estimated GFR (Cockcroft-Gault) 28.7 Glucose Level 180 mg/dL (70-99) Calcium Level 9.5 mg/dL (8.5-10.1) Total Bilirubin 0.6 mg/dL (0.2-1.0) Direct Bilirubin 0.1 mg/dL (0.0-0.2) Aspartate Amino Transf (AST/SGOT) 20 U/L (15-37) Alanine Aminotransferase (ALT/SGPT) 24 U/L (16-63) Alkaline Phosphatase 76 U/L (46-116) Creatine Kinase 64 U/L (39-308) Creatine Kinase MB (Mass) 2.0 ng/mL (0.0-3.6) Creatine Kinase MB Relative Index 3.1 % (0-4) Total Protein 7.3 g/dL (6.4-8.2) Albumin 3.6 g/dL (3.4-5.0) Urine Color Yellow Urine Clarity Clear Urine pH 5.0 Urine Specific [place] 1.015 Urine Protein Negative mg/dL (NEG-TRACE) Urine Glucose (UA) Negative mg/dL (NEG) Urine Ketones (Stick) Negative mg/dL (NEG) Urine Blood Negative (NEG) Urine Nitrite Negative (NEG) Urine Bilirubin Negative (NEG) Urine Urobilinogen Dipstick 0.2 mg/dL (0.2 mg/dL) Urine Leukocyte Esterase Negative (NEG) Urine RBC 0 /HPF (0-2) Urine WBC Occ /HPF (0-4) Urine Squamous Epithelial Cells Occ /LPF Urine Bacteria 0 /HPF (0-FEW) Urine Hyaline Casts Occasional /HPF Urine Mucus Mod /LPF Glucose (Fingerstick) 159 mg/dL (70-99) 208 mg/dL (70-99) Test 01/04/17 05:17 01/04/17 08:50 White Blood Count 10.3 x10^3/uL (4.0-11.0) Red Blood Count 4.16 x10^6/uL (4.30-5.70) Hemoglobin 14.1 g/dL (13.0-17.5) Hematocrit 40.7 % (39.0-53.0) Mean Corpuscular Volume 98 fL (79-100) Mean Corpuscular Hemoglobin 34 pg (25-35) Mean Corpuscular Hemoglobin Concent 35 g/dL (31-37) Red Cell Distribution Width 14.4 % (11.5-14.5) Platelet Count 149 x10^3/uL (140-400) Neutrophils (%) (Auto) 81 % (31-73) Lymphocytes (%) (Auto) 11 % (24-48) Monocytes (%) (Auto) 7 % (0-9) Eosinophils (%) (Auto) 1 % (0-3) Basophils (%) (Auto) 0 % (0-3) Neutrophils # (Auto) 8.3 x10^3uL (1.8-7.7) Lymphocytes # (Auto) 1.1 x10^3/uL (1.0-4.8) Monocytes # (Auto) 0.7 x10^3/uL (0.0-1.1) Eosinophils # (Auto) 0.1 x10^3/uL (0.0-0.7) Basophils # (Auto) 0.0 x10^3/uL (0.0-0.2) Sodium Level 132 mmol/L (136-145) Potassium Level 4.2 mmol/L (3.5-5.1) Chloride Level 103 mmol/L (98-107) Carbon Dioxide Level 21 mmol/L (21-32) Anion Gap 8 (6-14) Blood Urea Nitrogen 51 mg/dL (8-26) Creatinine 1.8 mg/dL (0.7-1.3) Estimated GFR (Cockcroft-Gault) 36.1 Glucose Level 177 mg/dL (70-99) Calcium Level 9.1 mg/dL (8.5-10.1) Glucose (Fingerstick) 177 mg/dL (70-99) Assessment/Plan Assessment/Plan IMP CARMELO WITH CR OF 2.2 CKD STAGE 3 WITH CR OF ABOUT 1.6 DEHYDRATION DEMENTIA POOR ORAL INTAKE HTN DM II PLAN IVF'S ENC PO LABS IN AM MARIYA RAMIRES MD Jan 04, 2017 10:36
[2017-01-04 11:00] VITALS: BP 117/48
--- NOTE | 2017-01-04 12:23 | RAD ---
Indication difficulty swallowing. The esophagus was evaluated. Both thick and thin contrast was administered. 13 spot images were obtained with the fluoroscopic unit. Prosthetic time associated with study was 3.6 minutes. No esophageal strictures or erosions were seen. Multiple tertiary contractions were identified. There was a small hiatus hernia. IMPRESSION: Presbyesophagus. Small hiatus hernia.
[2017-01-04] MEDS: CYANOCOBALAMIN (VITAMIN B-12) 1,000 MCG TABLET. PO SCH (13:03)
[2017-01-04] MEDS: MULTIVITAMIN with MINERAL TABLET. PO SCH (13:03)
[2017-01-04] MEDS: ALLOPURINOL 100 MG TABLET. PO SCH (13:03)
[2017-01-04] MEDS: PANTOPRAZOLE 40 MG TABLET.DR. PO SCH (13:03)
[2017-01-04] MEDS: glipiZIDE 5 MG TABLET PO SCH ×2 (13:03→20:59)
[2017-01-04] MEDS: ASPIRIN ENTERIC COATED 81 MG TABLET.DR. PO SCH (13:03)
--- NOTE | 2017-01-04 13:37 | PDOC ---
Subjective: Subjective: Family in room this afternoon now believe he's having gallbladder problems. Although he denies pain now and doesn't remember even having pain, he apparently reported RUQ discomfort "5 min after eating" several times (today, yesterday). No derm eval yet. Objective: Vital Signs: Vital Signs Date Time Temp Pulse Resp B/P (MAP) Pulse Ox O2 Delivery O2 Flow Rate FiO2 01/04/17 11:00 98.1 75 16 117/48 (71) 97 Room Air 98.1 Labs: Laboratory Tests Test 01/03/17 17:11 01/03/17 20:45 01/04/17 08:50 01/04/17 11:58 Glucose (Fingerstick) 159 mg/dL (70-99) 208 mg/dL (70-99) 177 mg/dL (70-99) 187 mg/dL (70-99) Imaging: Barium Swallow IMPRESSION: Presbyesophagus. Small hiatus hernia. Head CT Impression: 1. Prominent appearing lateral ventricles and third ventricle could be age- related cerebral atrophic changes or normal pressure hydrocephalus. PE: GEN: NAD ABD: BS+, soft, non-tender SKIN: +rash NEURO/PSYCH: confused A/P: Abnormal deglutition - not bothersome today -esophagram as above: presbyesophagus, hiatal hernia Post-prandial RUQ pain -- Family concerned. Abd US. DALJIT DRISCOLL Jan 04, 2017 13:37
[2017-01-04 15:00] VITALS: BP 114/49
--- NOTE | 2017-01-04 16:39 | PDOC ---
SUBJECTIVE Subjective Patient known to me. Initially seen in the summer of 2015 with itchy rash. He ultimately came to my office . two separate biopsies, different sites done. Revealed chronic dermatitis (could be anything including drug rash, nummular eczema, contact or irritant dermatitis). At his last visit with me Dec 16, 2015 he seemed to be improving. Family says he has been itchy for a long time. Patient says he is miserable. The only thing that seemed to help was clobetasol cream(a 15 gm tube cost them $100. and was not nearly enough for the extent of his rash). apparently no new meds (the family wasn't sure if allopurinol was reinstituted last winter but he has a history of severe gout). OBJECTIVE Objective Mostly excoriations arms, chest abdomen, legs, sparing genitalia. no evidence scabetic burows (no one else at home itchy). No oral lesions suggestive of lichen planus (possible evidence Koebnerization). Vital Signs Vital Signs Date Time Temp Pulse Resp B/P (MAP) Pulse Ox O2 Delivery O2 Flow Rate FiO2 01/04/17 15:00 96.6 64 16 114/49 (70) 97 Room Air 96.6 01/04/17 11:00 98.1 75 16 117/48 (71) 97 Room Air 98.1 01/04/17 07:00 98.3 64 16 137/74 (95) 94 Room Air 98.3 01/04/17 03:00 98.3 74 17 129/55 (79) 100 Room Air 98.3 01/03/17 22:57 98.1 69 18 109/65 (80) 94 Room Air 98.1 01/03/17 21:31 Room Air 01/03/17 19:00 98.3 66 15 104/73 (83) 96 Room Air 98.3 01/03/17 17:20 97.5 65 18 104/54 (71) 97 Room Air 97.5 I & O Intake and Output 01/05/17 07:00 Intake Total 240 ml Balance 240 ml Intake Oral 240 ml PHYSICAL EXAM Physical Exam as above ASSESSMENT/PLAN Assessment/Plan chronic dermatitis. doubt immunobullous disease. No eosinophilia. Can check blood for Bullous Pemphigoid antibodies. I do not have equipment to check for direct immunofluorescence with me. I suggest treat patient symptomatically, Follow up with me as outpatient. Problems: COMMENT Lab Laboratory Tests Test 01/03/17 16:50 01/03/17 17:11 01/03/17 20:45 01/04/17 05:17 Urine Color Yellow Urine Clarity Clear Urine pH 5.0 Urine Specific [place] 1.015 Urine Protein Negative mg/dL (NEG-TRACE) Urine Glucose (UA) Negative mg/dL (NEG) Urine Ketones (Stick) Negative mg/dL (NEG) Urine Blood Negative (NEG) Urine Nitrite Negative (NEG) Urine Bilirubin Negative (NEG) Urine Urobilinogen Dipstick 0.2 mg/dL (0.2 mg/dL) Urine Leukocyte Esterase Negative (NEG) Urine RBC 0 /HPF (0-2) Urine WBC Occ /HPF (0-4) Urine Squamous Epithelial Cells Occ /LPF Urine Bacteria 0 /HPF (0-FEW) Urine Hyaline Casts Occasional /HPF Urine Mucus Mod /LPF Glucose (Fingerstick) 159 mg/dL (70-99) 208 mg/dL (70-99) White Blood Count 10.3 x10^3/uL (4.0-11.0) Red Blood Count 4.16 x10^6/uL (4.30-5.70) Hemoglobin 14.1 g/dL (13.0-17.5) Hematocrit 40.7 % (39.0-53.0) Mean Corpuscular Volume 98 fL (79-100) Mean Corpuscular Hemoglobin 34 pg (25-35) Mean Corpuscular Hemoglobin Concent 35 g/dL (31-37) Red Cell Distribution Width 14.4 % (11.5-14.5) Platelet Count 149 x10^3/uL (140-400) Neutrophils (%) (Auto) 81 % (31-73) Lymphocytes (%) (Auto) 11 % (24-48) Monocytes (%) (Auto) 7 % (0-9) Eosinophils (%) (Auto) 1 % (0-3) Basophils (%) (Auto) 0 % (0-3) Neutrophils # (Auto) 8.3 x10^3uL (1.8-7.7) Lymphocytes # (Auto) 1.1 x10^3/uL (1.0-4.8) Monocytes # (Auto) 0.7 x10^3/uL (0.0-1.1) Eosinophils # (Auto) 0.1 x10^3/uL (0.0-0.7) Basophils # (Auto) 0.0 x10^3/uL (0.0-0.2) Sodium Level 132 mmol/L (136-145) Potassium Level 4.2 mmol/L (3.5-5.1) Chloride Level 103 mmol/L (98-107) Carbon Dioxide Level 21 mmol/L (21-32) Anion Gap 8 (6-14) Blood Urea Nitrogen 51 mg/dL (8-26) Creatinine 1.8 mg/dL (0.7-1.3) Estimated GFR (Cockcroft-Gault) 36.1 Glucose Level 177 mg/dL (70-99) Calcium Level 9.1 mg/dL (8.5-10.1) Test 01/04/17 08:50 01/04/17 11:58 Glucose (Fingerstick) 177 mg/dL (70-99) 187 mg/dL (70-99) ALEX HILTON MD Jan 04, 2017 16:39
[2017-01-04 19:00] VITALS: BP 108/65
[2017-01-04] MEDS: FLUOCINONIDE 0.05% TOPICAL CREAM 15 GM TUBE. TP SCH (21:00)
[2017-01-04] MEDS: ATORVASTATIN CALCIUM 20 MG TABLET PO SCH (21:00)
[2017-01-04 22:57] VITALS: BP 113/72
[2017-01-04] MEDS ORDERED: HALOPERIDOL LACTATE 5 MG/ML VIAL. IM ONE (23:00)
[2017-01-05 03:59] VITALS: BP 126/70
[2017-01-05 05:14] LABS: CALCIUM 8.5 mg/dL (8.5-10.1); CREATININE 1.7 mg/dL (0.7-1.3); GFR 38.6; POTASSIUM 4.4 mmol/L (3.5-5.1)
[2017-01-05 07:00] VITALS: BP 117/68
[2017-01-05] MEDS: IV NORMAL SALINE 1000ML BAG 1,000 ML IV SCH (07:30)
[2017-01-05] MEDS: PANTOPRAZOLE 40 MG TABLET.DR. PO SCH (07:41)
[2017-01-05] MEDS: glipiZIDE 5 MG TABLET PO SCH ×2 (07:41→17:47)
--- NOTE | 2017-01-05 08:00 | RAD ---
Limited abdominal ultrasound 01/04/2017 at 2125 hours Indication: Postprandial right upper quadrant abdominal pain. Comparison: Renal ultrasound 01/03/2017 Technique: Sonographic imaging of the right upper quadrant was performed utilizing grayscale and color Doppler. Findings: Pancreas is obscured by bowel gas. Liver is normal in echotexture without evidence for a focal mass lesion. Liver measures 12.6 cm. There is no intrahepatic or extrahepatic biliary ductal dilatation. Common bile duct measures 3 mm. Gallbladder is normal in appearance without evidence for gallstones, gallbladder wall thickening or pericholecystic fluid. Right kidney measures 11.1 x 3.9 x 4.3 cm. There is normal corticomedullary differentiation. No suspicious renal mass is identified. No renal calculi or hydronephrosis. IVC is poorly visualized. Abdominal aorta appears to be normal in caliber. No free fluid is identified in the right quadrant. Impression: 1. No sonographic evidence for cholelithiasis. 2. There is no intrahepatic or extrahepatic biliary ductal dilatation.
[2017-01-05] MEDS: MULTIVITAMIN with MINERAL TABLET. PO SCH (08:37)
[2017-01-05] MEDS: MINERAL OIL/PETROLATUM TOPICAL CREAM 113GM JAR. TP SCH ×2 (08:37→20:29)
[2017-01-05] MEDS: CYANOCOBALAMIN (VITAMIN B-12) 1,000 MCG TABLET. PO SCH (08:37)
[2017-01-05] MEDS: ALLOPURINOL 100 MG TABLET. PO SCH (08:37)
[2017-01-05] MEDS: FLUOCINONIDE 0.05% TOPICAL CREAM 15 GM TUBE. TP SCH ×2 (08:37→20:29)
[2017-01-05] MEDS: ASPIRIN ENTERIC COATED 81 MG TABLET.DR. PO SCH (08:37)
--- NOTE | 2017-01-05 10:16 | PDOC ---
G I PROGRESS NOTE Subjective Patient offers no complaints. Family still concerned re: RUQ pain pc. Objective Apparently "sundowning". Physical Exam Lungs clear. RRR Abdomen soft, not tender nor distended. Review of Relevant I have reviewed the following items otis (where applicable) has been applied. Labs Laboratory Tests Test 01/03/17 14:00 01/03/17 16:50 01/03/17 17:11 01/03/17 20:45 White Blood Count 14.2 x10^3/uL (4.0-11.0) Red Blood Count 4.57 x10^6/uL (4.30-5.70) Hemoglobin 15.1 g/dL (13.0-17.5) Hematocrit 45.6 % (39.0-53.0) Mean Corpuscular Volume 100 fL (79-100) Mean Corpuscular Hemoglobin 33 pg (25-35) Mean Corpuscular Hemoglobin Concent 33 g/dL (31-37) Red Cell Distribution Width 14.4 % (11.5-14.5) Platelet Count 182 x10^3/uL (140-400) Neutrophils (%) (Auto) 81 % (31-73) Lymphocytes (%) (Auto) 11 % (24-48) Monocytes (%) (Auto) 6 % (0-9) Eosinophils (%) (Auto) 1 % (0-3) Basophils (%) (Auto) 1 % (0-3) Neutrophils # (Auto) 11.5 x10^3uL (1.8-7.7) Lymphocytes # (Auto) 1.6 x10^3/uL (1.0-4.8) Monocytes # (Auto) 0.9 x10^3/uL (0.0-1.1) Eosinophils # (Auto) 0.1 x10^3/uL (0.0-0.7) Basophils # (Auto) 0.1 x10^3/uL (0.0-0.2) Sodium Level 132 mmol/L (136-145) Potassium Level 4.2 mmol/L (3.5-5.1) Chloride Level 98 mmol/L (98-107) Carbon Dioxide Level 24 mmol/L (21-32) Anion Gap 10 (6-14) Blood Urea Nitrogen 54 mg/dL (8-26) Creatinine 2.2 mg/dL (0.7-1.3) Estimated GFR (Cockcroft-Gault) 28.7 Glucose Level 180 mg/dL (70-99) Calcium Level 9.5 mg/dL (8.5-10.1) Total Bilirubin 0.6 mg/dL (0.2-1.0) Direct Bilirubin 0.1 mg/dL (0.0-0.2) Aspartate Amino Transf (AST/SGOT) 20 U/L (15-37) Alanine Aminotransferase (ALT/SGPT) 24 U/L (16-63) Alkaline Phosphatase 76 U/L (46-116) Creatine Kinase 64 U/L (39-308) Creatine Kinase MB (Mass) 2.0 ng/mL (0.0-3.6) Creatine Kinase MB Relative Index 3.1 % (0-4) Total Protein 7.3 g/dL (6.4-8.2) Albumin 3.6 g/dL (3.4-5.0) Urine Color Yellow Urine Clarity Clear Urine pH 5.0 Urine Specific [place] 1.015 Urine Protein Negative mg/dL (NEG-TRACE) Urine Glucose (UA) Negative mg/dL (NEG) Urine Ketones (Stick) Negative mg/dL (NEG) Urine Blood Negative (NEG) Urine Nitrite Negative (NEG) Urine Bilirubin Negative (NEG) Urine Urobilinogen Dipstick 0.2 mg/dL (0.2 mg/dL) Urine Leukocyte Esterase Negative (NEG) Urine RBC 0 /HPF (0-2) Urine WBC Occ /HPF (0-4) Urine Squamous Epithelial Cells Occ /LPF Urine Bacteria 0 /HPF (0-FEW) Urine Hyaline Casts Occasional /HPF Urine Mucus Mod /LPF Glucose (Fingerstick) 159 mg/dL (70-99) 208 mg/dL (70-99) Test 01/04/17 05:17 01/04/17 08:50 01/04/17 11:58 01/04/17 16:53 White Blood Count 10.3 x10^3/uL (4.0-11.0) Red Blood Count 4.16 x10^6/uL (4.30-5.70) Hemoglobin 14.1 g/dL (13.0-17.5) Hematocrit 40.7 % (39.0-53.0) Mean Corpuscular Volume 98 fL (79-100) Mean Corpuscular Hemoglobin 34 pg (25-35) Mean Corpuscular Hemoglobin Concent 35 g/dL (31-37) Red Cell Distribution Width 14.4 % (11.5-14.5) Platelet Count 149 x10^3/uL (140-400) Neutrophils (%) (Auto) 81 % (31-73) Lymphocytes (%) (Auto) 11 % (24-48) Monocytes (%) (Auto) 7 % (0-9) Eosinophils (%) (Auto) 1 % (0-3) Basophils (%) (Auto) 0 % (0-3) Neutrophils # (Auto) 8.3 x10^3uL (1.8-7.7) Lymphocytes # (Auto) 1.1 x10^3/uL (1.0-4.8) Monocytes # (Auto) 0.7 x10^3/uL (0.0-1.1) Eosinophils # (Auto) 0.1 x10^3/uL (0.0-0.7) Basophils # (Auto) 0.0 x10^3/uL (0.0-0.2) Sodium Level 132 mmol/L (136-145) Potassium Level 4.2 mmol/L (3.5-5.1) Chloride Level 103 mmol/L (98-107) Carbon Dioxide Level 21 mmol/L (21-32) Anion Gap 8 (6-14) Blood Urea Nitrogen 51 mg/dL (8-26) Creatinine 1.8 mg/dL (0.7-1.3) Estimated GFR (Cockcroft-Gault) 36.1 Glucose Level 177 mg/dL (70-99) Calcium Level 9.1 mg/dL (8.5-10.1) Glucose (Fingerstick) 177 mg/dL (70-99) 187 mg/dL (70-99) 133 mg/dL (70-99) Test 01/04/17 20:00 01/05/17 04:38 01/05/17 07:42 Glucose (Fingerstick) 126 mg/dL (70-99) 201 mg/dL (70-99) Sodium Level 137 mmol/L (136-145) Potassium Level 4.4 mmol/L (3.5-5.1) Chloride Level 105 mmol/L (98-107) Carbon Dioxide Level 24 mmol/L (21-32) Anion Gap 8 (6-14) Blood Urea Nitrogen 35 mg/dL (8-26) Creatinine 1.7 mg/dL (0.7-1.3) Estimated GFR (Cockcroft-Gault) 38.6 Glucose Level 147 mg/dL (70-99) Calcium Level 8.5 mg/dL (8.5-10.1) Laboratory Tests Test 01/04/17 11:58 01/04/17 16:53 01/04/17 20:00 01/05/17 04:38 Glucose (Fingerstick) 187 mg/dL (70-99) 133 mg/dL (70-99) 126 mg/dL (70-99) Sodium Level 137 mmol/L (136-145) Potassium Level 4.4 mmol/L (3.5-5.1) Chloride Level 105 mmol/L (98-107) Carbon Dioxide Level 24 mmol/L (21-32) Anion Gap 8 (6-14) Blood Urea Nitrogen 35 mg/dL (8-26) Creatinine 1.7 mg/dL (0.7-1.3) Estimated GFR (Cockcroft-Gault) 38.6 Glucose Level 147 mg/dL (70-99) Calcium Level 8.5 mg/dL (8.5-10.1) Test 01/05/17 07:42 Glucose (Fingerstick) 201 mg/dL (70-99) Medications Current Medications Acetaminophen (Tylenol) 650 mg Q4HRS PRN PO MILD PAIN / TEMP; Start 01/03/17 at 15:30 Magnesium Hydroxide (Milk Of Magnesia) 2,400 mg DAILY PRN PO CONSTIPATION; Start 01/03/17 at 15:30 Allopurinol (Zyloprim) 100 mg DAILY PO Last administered on 01/05/17 08:37; Start 01/04/17 at 09:00 Aspirin (Ecotrin) 81 mg [id number] PO Last administered on 01/05/17 08:37; Start 01/04/17 at 08:00 Sodium Chloride 1,000 ml @ 75 mls/hr [id number] IV Last administered on 21:54; Start 01/03/17 at 15:30 Glipizide (Glucotrol) 5 mg [id number] PO Last administered on 01/05/17 07:41; Start 01/03/17 at 16:30 Atorvastatin Calcium (Lipitor) 20 mg QHS PO Last administered on 01/03/17 20: 45; Start 01/03/17 at 21:00 Cyanocobalamin (Vitamin B-12) 1,000 mcg DAILY PO Last administered on 08:37; Start 01/04/17 at 09:00 Multivitamins (Thera M Plus) 1 tab DAILY PO Last administered on 01/05/17 08: 37; Start 01/04/17 at 09:00 Hydroxyzine HCl (Atarax) 10 mg PRN Q6HRS PRN PO ITCHING; Start 01/03/17 at 15: 30 Multi-Ingred Cream/Lotion/Oil/ Oint (Hydrocerin) 1 gemma BID TP Last administered on 01/05/17 08:37; Start 01/03/17 at 21:00 Ondansetron HCl (Zofran) 4 mg PRN Q6HRS PRN IV NAUSEA/VOMITING; Start 01/03/17 at 15:45 Barium Sulfate (Liquid E-Z Paque) 355 ml 1X ONCE PO Last administered on 08:29; Start 01/04/17 at 08:00; Stop 01/04/17 at 08:01; Status DC Simethicone/ Sodium Bicarb/ Citric Ac (E-Z-Gas) 1 packet 1X ONCE PO ; Start at 08:00; Stop 01/04/17 at 08:01; Status DC Barium Sulfate (E-Z-Hd) 340 gm 1X ONCE PO Last administered on 01/04/17 08:33 ; Start 01/04/17 at 08:30; Stop 01/04/17 at 08:32; Status DC Pantoprazole Sodium (Protonix) 40 mg DAILYAC PO Last administered on 01/05/17 07:41; Start 01/04/17 at 11:30 Fluocinonide (Lidex) 1 gemma BID TP Last administered on 01/05/17 08:37; Start 01/04/17 at 21:00 Haloperidol Lactate (Haldol) 2 mg 1X ONCE IM ; Start 01/04/17 at 23:00; Stop at 23:01; Status DC Active Scripts Active Triamcinolone Acetonide 0.1% Cream (Triamcinolone Acetonide) 15 Gm Cream..g. 1 Gemma TP BID Reported Clobetasol Propionate 15 Gm Cream..g. 1 Gemma TP PRN BID PRN Pravastatin Sodium 80 Mg Tablet 1 Tab PO DAILY LAST DOSE: 08/20/15 AM NEXT DOSE: 08/21/15 AM Furosemide 40 Mg Tablet 1 Tab PO DAILY LAST DOSE: 08/20/15 NEXT DOSE: 08/21/15 AM Vitamin B-12 (Cyanocobalamin (Vitamin B-12)) 1,000 Mcg Tablet 1 Tab PO DAILY LAST DOSE: 08/20/15 NEXT DOSE: 08/21/15 AM Vitamin B-12 (Cyanocobalamin (Vitamin B-12)) 1,000 Mcg Tablet 1 Tab PO DAILY LAST DOSE: 08/20/15 NEXT DOSE: 08/21/15 AM Amlodipine Besylate 10 Mg Tablet 10 Mg PO DAILY LAST DOSE: 08/20/15 NEXT DOSE: 08/21/15 Allopurinol 100 Mg Tablet 100 Mg PO BID LAST DOSE: 08/20/15 NEXT DOSE: 08/20/15 PM Glipizide 5 Mg Tablet 1 Tab PO DAILY LAST DOSE: 08/20/15 NEXT DOSE: 08/21/15 AM Multi-Day Vitamins (Multivitamin) 1 Each Tablet 1 Each PO DAILY LAST DOSE: 08/20/15 NEXT DOSE: 08/21/15 AM Aspirin 81 Mg Tab.chew 1 Tab PO DAILY LAST DOSE: 08/20/15 NEXT DOSE: 08/21/15 AM Vitals/I & O Vital Sign - Last 24 Hours 01/04/17 01/04/17 01/04/17 01/04/17 11:00 15:00 19:00 20:00 Temp 98.1 96.6 98.2 98.1 96.6 98.2 Pulse 75 64 85 Resp 16 16 18 B/P (MAP) 117/48 (71) 114/49 (70) 108/65 (79) Pulse Ox 97 97 97 O2 Delivery Room Air Room Air Room Air Room Air 01/04/17 01/05/17 01/05/17 22:57 03:59 07:00 Temp 97.8 97.7 97.8 97.7 Pulse 61 71 72 Resp 16 20 18 B/P (MAP) 113/72 (86) 126/70 (88) 117/68 (84) Pulse Ox 94 98 94 O2 Delivery Room Air Room Air Room Air Images On sono: Impression: 1. No sonographic evidence for cholelithiasis. 2. There is no intrahepatic or extrahepatic biliary ductal dilatation. Assessment Presbyesophagus. PC RUQ pain, reflux suspect. Plan of Care: Continue current Tx, Mgmt Plan of Care Note Add small dose metoclopramide. GOOD STINSON MD Jan 05, 2017 10:16
[2017-01-05 11:00] VITALS: BP 119/72
--- NOTE | 2017-01-05 11:13 | PDOC ---
PROGRESS NOTES Subjective Subjective agitated last night and received haldol 2 mg IM. showered this morning. alert. discussed with family . barium swallow and renal ultrasound negative. ct head shows atrophy. NPH not ruled out. will consult neurology to rule out NPH. will start aricept and namenda. for dementia. lab reviewed. renal function back to baseline but still not drinking enough fluids.will decrease iv fluids. will advance diet to solid food. monitor oral fluid intake. family does not want reglan and want to decrease his pill burdon. Objective Objective Vital Signs Date Time Temp Pulse Resp B/P (MAP) Pulse Ox O2 Delivery O2 Flow Rate FiO2 01/05/17 07:00 97.7 72 18 117/68 (84) 94 Room Air 97.7 Physical Exam Abdomen: Soft Heart: Regular rate, Normal S1, Normal S2 Extremities: No edema General: Alert HEENT: Atraumatic Lungs: Clear to auscultation Neuro: Normal speech Psych/Mental Status: Mood NL Skin: No rashes Assessment Assessment 1. Acute kidney injury resolved on top of chronic kidney disease stage 3. still not drinking enough fluids 2. Diabetes mellitus type 2 with diabetic nephropathy. 3. Chronic kidney disease stage 3. 4. Hypertension. 5. Hyperlipidemia. 6. History of gout. 7. Coronary artery disease with previous coronary bypass graft surgery. 8. History of dilatation of esophageal stricture in 2014. 9. Leukocytosis.resolved 10. Rash with dry skin.lidex cream per moisture meter reader 11. suspect alzheimers disease. rule out NPH 12. Metabolic encephalopathy.resolved Plan Plan of Care decrease iv fluids advance to ada solid food diet start namenda and aricept seroquel prn agitation neurology consult continue protonix d/c reglan Comment Review of Relevant I have reviewed the following items otis (where applicable) has been applied. Labs Laboratory Tests Test 01/03/17 14:00 01/03/17 16:50 01/03/17 17:11 01/03/17 20:45 White Blood Count 14.2 x10^3/uL (4.0-11.0) Red Blood Count 4.57 x10^6/uL (4.30-5.70) Hemoglobin 15.1 g/dL (13.0-17.5) Hematocrit 45.6 % (39.0-53.0) Mean Corpuscular Volume 100 fL (79-100) Mean Corpuscular Hemoglobin 33 pg (25-35) Mean Corpuscular Hemoglobin Concent 33 g/dL (31-37) Red Cell Distribution Width 14.4 % (11.5-14.5) Platelet Count 182 x10^3/uL (140-400) Neutrophils (%) (Auto) 81 % (31-73) Lymphocytes (%) (Auto) 11 % (24-48) Monocytes (%) (Auto) 6 % (0-9) Eosinophils (%) (Auto) 1 % (0-3) Basophils (%) (Auto) 1 % (0-3) Neutrophils # (Auto) 11.5 x10^3uL (1.8-7.7) Lymphocytes # (Auto) 1.6 x10^3/uL (1.0-4.8) Monocytes # (Auto) 0.9 x10^3/uL (0.0-1.1) Eosinophils # (Auto) 0.1 x10^3/uL (0.0-0.7) Basophils # (Auto) 0.1 x10^3/uL (0.0-0.2) Sodium Level 132 mmol/L (136-145) Potassium Level 4.2 mmol/L (3.5-5.1) Chloride Level 98 mmol/L (98-107) Carbon Dioxide Level 24 mmol/L (21-32) Anion Gap 10 (6-14) Blood Urea Nitrogen 54 mg/dL (8-26) Creatinine 2.2 mg/dL (0.7-1.3) Estimated GFR (Cockcroft-Gault) 28.7 Glucose Level 180 mg/dL (70-99) Calcium Level 9.5 mg/dL (8.5-10.1) Total Bilirubin 0.6 mg/dL (0.2-1.0) Direct Bilirubin 0.1 mg/dL (0.0-0.2) Aspartate Amino Transf (AST/SGOT) 20 U/L (15-37) Alanine Aminotransferase (ALT/SGPT) 24 U/L (16-63) Alkaline Phosphatase 76 U/L (46-116) Creatine Kinase 64 U/L (39-308) Creatine Kinase MB (Mass) 2.0 ng/mL (0.0-3.6) Creatine Kinase MB Relative Index 3.1 % (0-4) Total Protein 7.3 g/dL (6.4-8.2) Albumin 3.6 g/dL (3.4-5.0) Urine Color Yellow Urine Clarity Clear Urine pH 5.0 Urine Specific [place] 1.015 Urine Protein Negative mg/dL (NEG-TRACE) Urine Glucose (UA) Negative mg/dL (NEG) Urine Ketones (Stick) Negative mg/dL (NEG) Urine Blood Negative (NEG) Urine Nitrite Negative (NEG) Urine Bilirubin Negative (NEG) Urine Urobilinogen Dipstick 0.2 mg/dL (0.2 mg/dL) Urine Leukocyte Esterase Negative (NEG) Urine RBC 0 /HPF (0-2) Urine WBC Occ /HPF (0-4) Urine Squamous Epithelial Cells Occ /LPF Urine Bacteria 0 /HPF (0-FEW) Urine Hyaline Casts Occasional /HPF Urine Mucus Mod /LPF Glucose (Fingerstick) 159 mg/dL (70-99) 208 mg/dL (70-99) Test 01/04/17 05:17 01/04/17 08:50 01/04/17 11:58 01/04/17 16:53 White Blood Count 10.3 x10^3/uL (4.0-11.0) Red Blood Count 4.16 x10^6/uL (4.30-5.70) Hemoglobin 14.1 g/dL (13.0-17.5) Hematocrit 40.7 % (39.0-53.0) Mean Corpuscular Volume 98 fL (79-100) Mean Corpuscular Hemoglobin 34 pg (25-35) Mean Corpuscular Hemoglobin Concent 35 g/dL (31-37) Red Cell Distribution Width 14.4 % (11.5-14.5) Platelet Count 149 x10^3/uL (140-400) Neutrophils (%) (Auto) 81 % (31-73) Lymphocytes (%) (Auto) 11 % (24-48) Monocytes (%) (Auto) 7 % (0-9) Eosinophils (%) (Auto) 1 % (0-3) Basophils (%) (Auto) 0 % (0-3) Neutrophils # (Auto) 8.3 x10^3uL (1.8-7.7) Lymphocytes # (Auto) 1.1 x10^3/uL (1.0-4.8) Monocytes # (Auto) 0.7 x10^3/uL (0.0-1.1) Eosinophils # (Auto) 0.1 x10^3/uL (0.0-0.7) Basophils # (Auto) 0.0 x10^3/uL (0.0-0.2) Sodium Level 132 mmol/L (136-145) Potassium Level 4.2 mmol/L (3.5-5.1) Chloride Level 103 mmol/L (98-107) Carbon Dioxide Level 21 mmol/L (21-32) Anion Gap 8 (6-14) Blood Urea Nitrogen 51 mg/dL (8-26) Creatinine 1.8 mg/dL (0.7-1.3) Estimated GFR (Cockcroft-Gault) 36.1 Glucose Level 177 mg/dL (70-99) Calcium Level 9.1 mg/dL (8.5-10.1) Glucose (Fingerstick) 177 mg/dL (70-99) 187 mg/dL (70-99) 133 mg/dL (70-99) Test 01/04/17 20:00 01/05/17 04:38 01/05/17 07:42 Glucose (Fingerstick) 126 mg/dL (70-99) 201 mg/dL (70-99) Sodium Level 137 mmol/L (136-145) Potassium Level 4.4 mmol/L (3.5-5.1) Chloride Level 105 mmol/L (98-107) Carbon Dioxide Level 24 mmol/L (21-32) Anion Gap 8 (6-14) Blood Urea Nitrogen 35 mg/dL (8-26) Creatinine 1.7 mg/dL (0.7-1.3) Estimated GFR (Cockcroft-Gault) 38.6 Glucose Level 147 mg/dL (70-99) Calcium Level 8.5 mg/dL (8.5-10.1) Laboratory Tests Test 01/04/17 11:58 01/04/17 16:53 01/04/17 20:00 01/05/17 04:38 Glucose (Fingerstick) 187 mg/dL (70-99) 133 mg/dL (70-99) 126 mg/dL (70-99) Sodium Level 137 mmol/L (136-145) Potassium Level 4.4 mmol/L (3.5-5.1) Chloride Level 105 mmol/L (98-107) Carbon Dioxide Level 24 mmol/L (21-32) Anion Gap 8 (6-14) Blood Urea Nitrogen 35 mg/dL (8-26) Creatinine 1.7 mg/dL (0.7-1.3) Estimated GFR (Cockcroft-Gault) 38.6 Glucose Level 147 mg/dL (70-99) Calcium Level 8.5 mg/dL (8.5-10.1) Test 01/05/17 07:42 Glucose (Fingerstick) 201 mg/dL (70-99) Medications Current Medications Acetaminophen (Tylenol) 650 mg Q4HRS PRN PO MILD PAIN / TEMP; Start 01/03/17 at 15:30 Magnesium Hydroxide (Milk Of Magnesia) 2,400 mg DAILY PRN PO CONSTIPATION; Start 01/03/17 at 15:30 Allopurinol (Zyloprim) 100 mg DAILY PO Last administered on 01/05/17 08:37; Start 01/04/17 at 09:00 Aspirin (Ecotrin) 81 mg DAILYWBKFT PO Last administered on 01/05/17 08:37; Start 01/04/17 at 08:00 Sodium Chloride 1,000 ml @ 75 mls/hr [id number] IV Last administered on 21:54; Start 01/03/17 at 15:30 Glipizide (Glucotrol) 5 mg BIDBFRMEAL PO Last administered on 01/05/17 07:41; Start 01/03/17 at 16:30 Atorvastatin Calcium (Lipitor) 20 mg QHS PO Last administered on 01/03/17 20: 45; Start 01/03/17 at 21:00 Cyanocobalamin (Vitamin B-12) 1,000 mcg DAILY PO Last administered on 08:37; Start 01/04/17 at 09:00 Multivitamins (Thera M Plus) 1 tab DAILY PO Last administered on 01/05/17 08: 37; Start 01/04/17 at 09:00 Hydroxyzine HCl (Atarax) 10 mg PRN Q6HRS PRN PO ITCHING; Start 01/03/17 at 15: 30 Multi-Ingred Cream/Lotion/Oil/ Oint (Hydrocerin) 1 gemma BID TP Last administered on 01/05/17 08:37; Start 01/03/17 at 21:00 Ondansetron HCl (Zofran) 4 mg PRN Q6HRS PRN IV NAUSEA/VOMITING; Start 01/03/17 at 15:45 Barium Sulfate (Liquid E-Z Paque) 355 ml 1X ONCE PO Last administered on 08:29; Start 01/04/17 at 08:00; Stop 01/04/17 at 08:01; Status DC Simethicone/ Sodium Bicarb/ Citric Ac (E-Z-Gas) 1 packet 1X ONCE PO ; Start at 08:00; Stop 01/04/17 at 08:01; Status DC Barium Sulfate (E-Z-Hd) 340 gm 1X ONCE PO Last administered on 01/04/17 08:33 ; Start 01/04/17 at 08:30; Stop 01/04/17 at 08:32; Status DC Pantoprazole Sodium (Protonix) 40 mg DAILYAC PO Last administered on 01/05/17 07:41; Start 01/04/17 at 11:30 Fluocinonide (Lidex) 1 gemma BID TP Last administered on 01/05/17 08:37; Start 01/04/17 at 21:00 Haloperidol Lactate (Haldol) 2 mg 1X ONCE IM ; Start 01/04/17 at 23:00; Stop at 23:01; Status DC Metoclopramide HCl (Reglan) 5 mg TIDAC PO ; Start 01/05/17 at 11:30 Active Scripts Active Triamcinolone Acetonide 0.1% Cream (Triamcinolone Acetonide) 15 Gm Cream..g. 1 Gemma TP BID Reported Clobetasol Propionate 15 Gm Cream..g. 1 Gemma TP PRN BID PRN Pravastatin Sodium 80 Mg Tablet 1 Tab PO DAILY LAST DOSE: 08/20/15 AM NEXT DOSE: 08/21/15 AM Furosemide 40 Mg Tablet 1 Tab PO DAILY LAST DOSE: 08/20/15 AM NEXT DOSE: 08/21/15 AM Vitamin B-12 (Cyanocobalamin (Vitamin B-12)) 1,000 Mcg Tablet 1 Tab PO DAILY LAST DOSE: 08/20/15 AM NEXT DOSE: 08/21/15 AM Vitamin B-12 (Cyanocobalamin (Vitamin B-12)) 1,000 Mcg Tablet 1 Tab PO DAILY LAST DOSE: 08/20/15 NEXT DOSE: 08/21/15 Amlodipine Besylate 10 Mg Tablet 10 Mg PO DAILY LAST DOSE: 08/20/15 NEXT DOSE: 08/21/15 Allopurinol 100 Mg Tablet 100 Mg PO BID LAST DOSE: 08/20/15 NEXT DOSE: 08/20/15 PM Glipizide 5 Mg Tablet 1 Tab PO DAILY LAST DOSE: 08/20/15 NEXT DOSE: 08/21/15 Multi-Day Vitamins (Multivitamin) 1 Each Tablet 1 Each PO DAILY LAST DOSE: 08/20/15 NEXT DOSE: 08/21/15 Aspirin 81 Mg Tab.chew 1 Tab PO DAILY LAST DOSE: 08/20/15 NEXT DOSE: 08/21/15 AM Vitals/I & O Vital Sign - Last 24 Hours 01/04/17 01/04/17 01/04/17 01/04/17 15:00 19:00 20:00 22:57 Temp 96.6 98.2 96.6 98.2 Pulse 64 85 61 Resp 16 18 16 B/P (MAP) 114/49 (70) 108/65 (79) 113/72 (86) Pulse Ox 97 97 94 O2 Delivery Room Air Room Air Room Air Room Air 01/05/17 01/05/17 03:59 07:00 Temp 97.8 97.7 97.8 97.7 Pulse 71 72 Resp 20 18 B/P (MAP) 126/70 (88) 117/68 (84) Pulse Ox 98 94 O2 Delivery Room Air Room Air GOOD ODOM MD Jan 05, 2017 11:12
[2017-01-05] MEDS ORDERED: QUEtiapine 25 MG TABLET. PO PRN ×2 (11:15→21:00)
[2017-01-05] MEDS ORDERED: METOCLOPRAMIDE 5 MG TABLET. PO SCH (11:30)
[2017-01-05] MEDS: MEMANTINE 5 MG TABLET. PO SCH (12:01)
[2017-01-05] MEDS: DONEPEZIL HCL 5 MG TABLET. PO SCH (12:01)
--- NOTE | 2017-01-05 13:05 | PDOC ---
SUBJECTIVE ROS CARMELO/ CKD III Doing same overall; : CVS: no Orthopnea no CP RESP: no SOB no JOVEL GI: no Nausea no Vomiting : no Dysuria no Urgency OBJECTIVE Vital Signs Vital Signs Date Time Temp Pulse Resp B/P (MAP) Pulse Ox O2 Delivery O2 Flow Rate FiO2 01/05/17 11:00 97.7 72 18 119/72 (88) 96 Room Air 97.7 PHYSICAL EXAM Physical Exam GEN: Awake, Oriented x 2, In no distress EYES: Vision Unchanged, Conjunctiva Normal EN: No EN Drainage, Mucous Membranes moist NECK: no JVD, no JVP, Supple, no Thyromegaly CVS: S1S2, no Murmur, No Gallop, No Rub,no Edema RESP: no Rales, no Rhonchi,no Acc. Muscle Use GI: BS + ve, NO Bruit, Non Tender, Non Distended : no CVA tenderness, no Suprapubic Tenderness DIAGNOSIS/ASSESSMENT Assessment & Plan CARMELO - better with IVF; OK to D/c IVf prn CKD III: creat is close to baseline. Current fluid and E-lyte status does not necessitate emergent need for dialysis. Will re-evaluate for dialysis in the am Dehydration - better with improved PO intake and IVF Low Na - corrected Discussed Plan of Care with family () at bedside Problems: COMMENT/RELEVANT DATA Meds Current Medications Medications (Trade) Dose Ordered Sig/Jonathon Start Time Stop Time Status Last Admin Dose Admin Acetaminophen (Tylenol) 650 mg Q4HRS PRN 01/03/17 15:30 Allopurinol (Zyloprim) 200 mg DAILY 01/06/17 09:00 Aspirin (Ecotrin) 81 mg DAILYWBKFT 01/04/17 08:00 01/05/17 08:37 81 MG Atorvastatin Calcium (Lipitor) 20 mg QHS 01/03/17 21:00 01/03/17 20:45 20 MG Barium Sulfate (E-Z-Hd) 340 gm 1X ONCE 01/04/17 08:30 01/04/17 08:32 DC 01/04/17 08:33 340 GM Barium Sulfate (Liquid E-Z Paque) 355 ml 1X ONCE 01/04/17 08:00 01/04/17 08:01 DC 01/04/17 08:29 355 ML Cyanocobalamin (Vitamin B-12) 1,000 mcg DAILY 01/04/17 09:00 01/05/17 08:37 1,000 MCG Donepezil HCl (Aricept) 5 mg DAILY 01/05/17 12:00 01/05/17 12:01 5 MG Fluocinonide (Lidex) 1 dustin BID 01/04/17 21:00 01/05/17 08:37 1 DUSTIN Glipizide (Glucotrol) 5 mg BIDBFRMEAL 01/03/17 16:30 01/05/17 07:41 5 MG Haloperidol Lactate (Haldol) 2 mg 1X ONCE 01/04/17 23:00 01/04/17 23:01 DC Hydroxyzine HCl (Atarax) 10 mg PRN Q6HRS PRN 01/03/17 15:30 Magnesium Hydroxide (Milk Of Magnesia) 2,400 mg DAILY PRN 01/03/17 15:30 Memantine (Namenda) 5 mg DAILY 01/05/17 12:00 01/05/17 12:01 5 MG Metoclopramide HCl (Reglan) 5 mg TIDAC 01/05/17 11:30 01/05/17 11:30 DC Multi-Ingred Cream/Lotion/Oil/ Oint (Hydrocerin) 1 dustin BID 01/03/17 21:00 01/05/17 08:37 1 DUSTIN Multivitamins (Thera M Plus) 1 tab DAILY 01/04/17 09:00 01/05/17 08:37 1 TAB Ondansetron HCl (Zofran) 4 mg PRN Q6HRS PRN 01/03/17 15:45 Pantoprazole Sodium (Protonix) 40 mg DAILYAC 01/04/17 11:30 01/05/17 07:41 40 MG Quetiapine Fumarate (SEROquel) 25 mg PRN QHS PRN 01/05/17 21:00 Simethicone/ Sodium Bicarb/ Citric Ac (E-Z-Gas) 1 packet 1X ONCE 01/04/17 08:00 01/04/17 08:01 DC Sodium Chloride 1,000 ml @ 50 mls/hr Q20H 01/03/17 15:30 01/04/17 21:54 75 MLS/HR Lab Laboratory Tests Test 01/04/17 16:53 01/04/17 20:00 01/05/17 04:38 01/05/17 07:42 Glucose (Fingerstick) 133 mg/dL (70-99) 126 mg/dL (70-99) 201 mg/dL (70-99) Sodium Level 137 mmol/L (136-145) Potassium Level 4.4 mmol/L (3.5-5.1) Chloride Level 105 mmol/L (98-107) Carbon Dioxide Level 24 mmol/L (21-32) Anion Gap 8 (6-14) Blood Urea Nitrogen 35 mg/dL (8-26) Creatinine 1.7 mg/dL (0.7-1.3) Estimated GFR (Cockcroft-Gault) 38.6 Glucose Level 147 mg/dL (70-99) Calcium Level 8.5 mg/dL (8.5-10.1) Test 01/05/17 11:04 Glucose (Fingerstick) 174 mg/dL (70-99) CONNIE AUSTIN MD Jan 05, 2017 13:05
[2017-01-05 15:00] VITALS: BP 120/72
--- NOTE | 2017-01-05 16:18 | PDOC2 ---
CONSULT Date of Consult Date of Consult DATE: 01/05/17 TIME: 16:17 Reason for Consult Reason for Consult: dementia History of Present Illness Reason for Visit: This patient is a 86-year-old man with past medical history of coronary artery disease, neuropathy, diabetes, chronic kidney disease, hypertension, hyperlipidemia. Patient is having memory problems for last over 2 years. Information obtained from patient's and patient's daughter at bedside. Patient will be having problems remembering recent conversations patient is more forgetful. Patient will not remember recent conversations with the family. Patient denies any complaints of any date problems, denies any problems with urinary incontinence. Patient is being evaluated for acute kidney injury, and metabolic encephalopathy. Patient had a CT scan done on the brain which showed diffuse atrophy there was a question of normal pressure hydrocephalus. Dementia . Past Medical History Cardiovascular: CAD, HTN, Hyperlipidemia CENTRAL NERVOUS SYSTEM: Dementia GI: Constipation, GERD, Other (TUBULAR ADENOMA, ESOPHAGEAL STRICTURE) Musculoskeletal: Other (GOUT) Renal/: Chronic renal insuff Past Surgical History Past Surgical History: CABG Family History Family History: No Significant Social History No ALCOHOL: none Drugs: None Current Medications Current Medications Current Medications Acetaminophen (Tylenol) 650 mg Q4HRS PRN PO MILD PAIN / TEMP; Start 01/03/17 at 15:30 Magnesium Hydroxide (Milk Of Magnesia) 2,400 mg DAILY PRN PO CONSTIPATION; Start 01/03/17 at 15:30 Allopurinol (Zyloprim) 100 mg DAILY PO Last administered on 01/05/17 08:37; Start 01/04/17 at 09:00; Stop 01/05/17 at 11:06; Status DC Aspirin (Ecotrin) 81 mg DAILYWBKFT PO Last administered on 01/05/17 08:37; Start 01/04/17 at 08:00 Sodium Chloride 1,000 ml @ 50 mls/hr Q20H IV Last administered on 01/04/17 21 :54; Start 01/03/17 at 15:30 Glipizide (Glucotrol) 5 mg BIDBFRMEAL PO Last administered on 01/05/17 07:41; Start 01/03/17 at 16:30 Atorvastatin Calcium (Lipitor) 20 mg QHS PO Last administered on 01/03/17 20: 45; Start 01/03/17 at 21:00 Cyanocobalamin (Vitamin B-12) 1,000 mcg DAILY PO Last administered on 08:37; Start 01/04/17 at 09:00 Multivitamins (Thera M Plus) 1 tab DAILY PO Last administered on 01/05/17 08: 37; Start 01/04/17 at 09:00 Hydroxyzine HCl (Atarax) 10 mg PRN Q6HRS PRN PO ITCHING; Start 01/03/17 at 15: 30 Multi-Ingred Cream/Lotion/Oil/ Oint (Hydrocerin) 1 gemma BID TP Last administered on 01/05/17 08:37; Start 01/03/17 at 21:00 Ondansetron HCl (Zofran) 4 mg PRN Q6HRS PRN IV NAUSEA/VOMITING; Start 01/03/17 at 15:45 Barium Sulfate (Liquid E-Z Paque) 355 ml 1X ONCE PO Last administered on 08:29; Start 01/04/17 at 08:00; Stop 01/04/17 at 08:01; Status DC Simethicone/ Sodium Bicarb/ Citric Ac (E-Z-Gas) 1 packet 1X ONCE PO ; Start at 08:00; Stop 01/04/17 at 08:01; Status DC Barium Sulfate (E-Z-Hd) 340 gm 1X ONCE PO Last administered on 01/04/17 08:33 ; Start 01/04/17 at 08:30; Stop 01/04/17 at 08:32; Status DC Pantoprazole Sodium (Protonix) 40 mg DAILYAC PO Last administered on 01/05/17 07:41; Start 01/04/17 at 11:30 Fluocinonide (Lidex) 1 gemma BID TP Last administered on 01/05/17 08:37; Start 01/04/17 at 21:00 Haloperidol Lactate (Haldol) 2 mg 1X ONCE IM ; Start 01/04/17 at 23:00; Stop at 23:01; Status DC Metoclopramide HCl (Reglan) 5 mg TIDAC PO ; Start 01/05/17 at 11:30; Stop at 11:30; Status DC Allopurinol (Zyloprim) 200 mg DAILY PO ; Start 01/06/17 at 09:00 Donepezil HCl (Aricept) 5 mg DAILY PO Last administered on 01/05/17 12:01; Start 01/05/17 at 12:00 Memantine (Namenda) 5 mg DAILY PO Last administered on 01/05/17 12:01; Start 01/05/17 at 12:00 Quetiapine Fumarate (SEROquel) 12.5 mg PRN Q8HRS PRN PO AGITATION; Start at 11:15 Quetiapine Fumarate (SEROquel) 25 mg PRN QHS PRN PO AGITATION; Start 01/05/17 at 21:00 Active Scripts Active Triamcinolone Acetonide 0.1% Cream (Triamcinolone Acetonide) 15 Gm Cream..g. 1 Gemma TP BID Reported Clobetasol Propionate 15 Gm Cream..g. 1 Gemma TP PRN BID PRN Pravastatin Sodium 80 Mg Tablet 1 Tab PO DAILY LAST DOSE: 08/20/15 AM NEXT DOSE: 08/21/15 AM Furosemide 40 Mg Tablet 1 Tab PO DAILY LAST DOSE: 08/20/15 NEXT DOSE: 08/21/15 AM Vitamin B-12 (Cyanocobalamin (Vitamin B-12)) 1,000 Mcg Tablet 1 Tab PO DAILY LAST DOSE: 08/20/15 NEXT DOSE: 08/21/15 AM Vitamin B-12 (Cyanocobalamin (Vitamin B-12)) 1,000 Mcg Tablet 1 Tab PO DAILY LAST DOSE: 08/20/15 AM NEXT DOSE: 08/21/15 AM Amlodipine Besylate 10 Mg Tablet 10 Mg PO DAILY LAST DOSE: 08/20/15 NEXT DOSE: 08/21/15 Allopurinol 100 Mg Tablet 100 Mg PO BID LAST DOSE: 08/20/15 AM NEXT DOSE: 08/20/15 PM Glipizide 5 Mg Tablet 1 Tab PO DAILY LAST DOSE: 08/20/15 AM NEXT DOSE: 08/21/15 AM Multi-Day Vitamins (Multivitamin) 1 Each Tablet 1 Each PO DAILY LAST DOSE: 08/20/15 AM NEXT DOSE: 08/21/15 AM Aspirin 81 Mg Tab.chew 1 Tab PO DAILY LAST DOSE: 08/20/15 AM NEXT DOSE: 08/21/15 AM Allergies Allergies: Coded Allergies: No Known Allergies (Verified Allergy, Unknown, 08/17/15) Physical Exam Physical Exam REVIEW OF SYSTEMS: Otherwise, not [id number] review of systems. PHYSICAL EXAMINATION: General appearance is in acute distress. HEENT: Normocephalic and nontraumatic. Eyes, nose, ears, and throat are unremarkable. Neck is supple. No lymphadenopathy. No crepitus. Cardiovascular: S1, S2, regular rate and rhythm. Pulmonary: Clear to auscultation bilaterally. Abdomen: Bowel sounds are positive. Abdomen is soft, nontender, and nondistended. NEUROLOGICAL EXAMINATION: Alert able to tell his name able to follow simple commands PERRL. EOMI. CN: no focal findings. Muscle tone: within normal. Muscle strength: moves all exts DTR: 1-2 Plantar reflex: Flexor response bilaterally Gait: not examined in bed. Sensory exam: no abnormal findings. No obvious cerebellar signs elicited. Vitals VITALS Vital Signs Date Time Temp Pulse Resp B/P (MAP) Pulse Ox O2 Delivery O2 Flow Rate FiO2 01/05/17 15:00 98.3 88 18 120/72 (88) 98 Room Air 98.3 Labs Labs Laboratory Tests Test 01/03/17 16:50 01/03/17 17:11 01/03/17 20:45 01/04/17 05:17 Urine Color Yellow Urine Clarity Clear Urine pH 5.0 Urine Specific [place] 1.015 Urine Protein Negative mg/dL (NEG-TRACE) Urine Glucose (UA) Negative mg/dL (NEG) Urine Ketones (Stick) Negative mg/dL (NEG) Urine Blood Negative (NEG) Urine Nitrite Negative (NEG) Urine Bilirubin Negative (NEG) Urine Urobilinogen Dipstick 0.2 mg/dL (0.2 mg/dL) Urine Leukocyte Esterase Negative (NEG) Urine RBC 0 /HPF (0-2) Urine WBC Occ /HPF (0-4) Urine Squamous Epithelial Cells Occ /LPF Urine Bacteria 0 /HPF (0-FEW) Urine Hyaline Casts Occasional /HPF Urine Mucus Mod /LPF Glucose (Fingerstick) 159 mg/dL (70-99) 208 mg/dL (70-99) White Blood Count 10.3 x10^3/uL (4.0-11.0) Red Blood Count 4.16 x10^6/uL (4.30-5.70) Hemoglobin 14.1 g/dL (13.0-17.5) Hematocrit 40.7 % (39.0-53.0) Mean Corpuscular Volume 98 fL (79-100) Mean Corpuscular Hemoglobin 34 pg (25-35) Mean Corpuscular Hemoglobin Concent 35 g/dL (31-37) Red Cell Distribution Width 14.4 % (11.5-14.5) Platelet Count 149 x10^3/uL (140-400) Neutrophils (%) (Auto) 81 % (31-73) Lymphocytes (%) (Auto) 11 % (24-48) Monocytes (%) (Auto) 7 % (0-9) Eosinophils (%) (Auto) 1 % (0-3) Basophils (%) (Auto) 0 % (0-3) Neutrophils # (Auto) 8.3 x10^3uL (1.8-7.7) Lymphocytes # (Auto) 1.1 x10^3/uL (1.0-4.8) Monocytes # (Auto) 0.7 x10^3/uL (0.0-1.1) Eosinophils # (Auto) 0.1 x10^3/uL (0.0-0.7) Basophils # (Auto) 0.0 x10^3/uL (0.0-0.2) Sodium Level 132 mmol/L (136-145) Potassium Level 4.2 mmol/L (3.5-5.1) Chloride Level 103 mmol/L (98-107) Carbon Dioxide Level 21 mmol/L (21-32) Anion Gap 8 (6-14) Blood Urea Nitrogen 51 mg/dL (8-26) Creatinine 1.8 mg/dL (0.7-1.3) Estimated GFR (Cockcroft-Gault) 36.1 Glucose Level 177 mg/dL (70-99) Calcium Level 9.1 mg/dL (8.5-10.1) Test 01/04/17 08:50 01/04/17 11:58 01/04/17 16:53 01/04/17 20:00 Glucose (Fingerstick) 177 mg/dL (70-99) 187 mg/dL (70-99) 133 mg/dL (70-99) 126 mg/dL (70-99) Test 01/05/17 04:38 01/05/17 07:42 01/05/17 11:04 Sodium Level 137 mmol/L (136-145) Potassium Level 4.4 mmol/L (3.5-5.1) Chloride Level 105 mmol/L (98-107) Carbon Dioxide Level 24 mmol/L (21-32) Anion Gap 8 (6-14) Blood Urea Nitrogen 35 mg/dL (8-26) Creatinine 1.7 mg/dL (0.7-1.3) Estimated GFR (Cockcroft-Gault) 38.6 Glucose Level 147 mg/dL (70-99) Calcium Level 8.5 mg/dL (8.5-10.1) Glucose (Fingerstick) 201 mg/dL (70-99) 174 mg/dL (70-99) Laboratory Tests Test 01/04/17 16:53 01/04/17 20:00 01/05/17 04:38 01/05/17 07:42 Glucose (Fingerstick) 133 mg/dL (70-99) 126 mg/dL (70-99) 201 mg/dL (70-99) Sodium Level 137 mmol/L (136-145) Potassium Level 4.4 mmol/L (3.5-5.1) Chloride Level 105 mmol/L (98-107) Carbon Dioxide Level 24 mmol/L (21-32) Anion Gap 8 (6-14) Blood Urea Nitrogen 35 mg/dL (8-26) Creatinine 1.7 mg/dL (0.7-1.3) Estimated GFR (Cockcroft-Gault) 38.6 Glucose Level 147 mg/dL (70-99) Calcium Level 8.5 mg/dL (8.5-10.1) Test 01/05/17 11:04 Glucose (Fingerstick) 174 mg/dL (70-99) Assessment/Plan Assessment/Plan This patient is a 86-year-old man with past medical history of coronary artery disease, neuropathy, diabetes, chronic kidney disease, hypertension, hyperlipidemia. Patient is having memory problems for last over 2 years. Information obtained from patient's and patient's daughter at bedside. Patient will be having problems remembering recent conversations patient is more forgetful. Patient will not remember recent conversations with the family. Patient denies any complaints of any date problems, denies any problems with urinary incontinence. Patient is being evaluated for acute kidney injury, and metabolic encephalopathy. Patient had a CT scan done on the brain which showed diffuse atrophy there was a question of normal pressure hydrocephalus. Dementia Patient can further be evaluated with neuropsychological evaluation. I also discussed with family getting MRI to further evaluate with question of hydrocephalus. Patient clinically does not have any features of hydrocephalus memory problems are more chronic patient denies any complaint of difficulty with gait or balance there is no history of urinary incontinence. Patient can further be evaluated be lumbar puncture patient's family does not want to get aggressive measures currently We will suggest getting further workup if needed as outpatient in neurology clinic. DARIUS GUARDADO MD Jan 05, 2017 16:18
[2017-01-05 19:00] VITALS: BP 143/79
[2017-01-05] MEDS: ATORVASTATIN CALCIUM 20 MG TABLET PO SCH (20:28)
[2017-01-06 03:00] VITALS: BP 147/76
[2017-01-06] MEDS: IV NORMAL SALINE 1000ML BAG 1,000 ML IV SCH (04:39)
[2017-01-06 05:59] LABS: BASO % 1 % (0-3); EOS % 2 % (0-3); HEMATOCRIT 37.6 % (39.0-53.0); LYMPH # 1.3 x10^3/uL (1.0-4.8); LYMPH % 17 % (24-48); MEAN CORPUSCULAR HEMOGLOBIN 34 pg (25-35); MEAN CORPUSCULAR HGB CONC 35 g/dL (31-37); MEAN CORPUSCULAR VOLUME 98 fL (79-100); MONO % 9 % (0-9); NEUT % 72 % (31-73); PLATELET COUNT 132 x10^3/uL (140-400); RED BLOOD COUNT 3.82 x10^6/uL (4.30-5.70); RED CELL DISTRIBUTION WIDTH 14.2 % (11.5-14.5); WHITE BLOOD COUNT 7.2 x10^3/uL (4.0-11.0)
[2017-01-06 06:06] LABS: CALCIUM 8.3 mg/dL (8.5-10.1); CREATININE 1.5 mg/dL (0.7-1.3); GFR 44.6; POTASSIUM 4.2 mmol/L (3.5-5.1)
[2017-01-06 07:00] VITALS: BP 136/80
[2017-01-06] MEDS: ASPIRIN ENTERIC COATED 81 MG TABLET.DR. PO SCH (08:25)
[2017-01-06] MEDS: DONEPEZIL HCL 5 MG TABLET. PO SCH (08:25)
[2017-01-06] MEDS: PANTOPRAZOLE 40 MG TABLET.DR. PO SCH (08:25)
[2017-01-06] MEDS: MEMANTINE 5 MG TABLET. PO SCH (08:25)
[2017-01-06] MEDS: MULTIVITAMIN with MINERAL TABLET. PO SCH (08:25)
[2017-01-06] MEDS: glipiZIDE 5 MG TABLET PO SCH (08:26)
[2017-01-06] MEDS: CYANOCOBALAMIN (VITAMIN B-12) 1,000 MCG TABLET. PO SCH (08:26)
[2017-01-06] MEDS: FLUOCINONIDE 0.05% TOPICAL CREAM 15 GM TUBE. TP SCH (08:27)
[2017-01-06] MEDS: MINERAL OIL/PETROLATUM TOPICAL CREAM 113GM JAR. TP SCH (08:28)
[2017-01-06] MEDS ORDERED: ALLOPURINOL 100 MG TABLET. PO SCH (09:00)
--- NOTE | 2017-01-06 10:47 | PDOC ---
G I PROGRESS NOTE Subjective Doing better. Seen with Dr. Hart. Ate better yesterday. No pain. Physical Exam Abdomen benign. Review of Relevant I have reviewed the following items otis (where applicable) has been applied. Labs Laboratory Tests Test 01/04/17 11:58 01/04/17 16:53 01/04/17 20:00 01/05/17 04:38 Glucose (Fingerstick) 187 mg/dL (70-99) 133 mg/dL (70-99) 126 mg/dL (70-99) Sodium Level 137 mmol/L (136-145) Potassium Level 4.4 mmol/L (3.5-5.1) Chloride Level 105 mmol/L (98-107) Carbon Dioxide Level 24 mmol/L (21-32) Anion Gap 8 (6-14) Blood Urea Nitrogen 35 mg/dL (8-26) Creatinine 1.7 mg/dL (0.7-1.3) Estimated GFR (Cockcroft-Gault) 38.6 Glucose Level 147 mg/dL (70-99) Calcium Level 8.5 mg/dL (8.5-10.1) Test 01/05/17 07:42 01/05/17 11:04 01/05/17 16:16 01/05/17 20:37 Glucose (Fingerstick) 201 mg/dL (70-99) 174 mg/dL (70-99) 194 mg/dL (70-99) 146 mg/dL (70-99) Test 01/06/17 05:30 White Blood Count 7.2 x10^3/uL (4.0-11.0) Red Blood Count 3.82 x10^6/uL (4.30-5.70) Hemoglobin 13.0 g/dL (13.0-17.5) Hematocrit 37.6 % (39.0-53.0) Mean Corpuscular Volume 98 fL (79-100) Mean Corpuscular Hemoglobin 34 pg (25-35) Mean Corpuscular Hemoglobin Concent 35 g/dL (31-37) Red Cell Distribution Width 14.2 % (11.5-14.5) Platelet Count 132 x10^3/uL (140-400) Neutrophils (%) (Auto) 72 % (31-73) Lymphocytes (%) (Auto) 17 % (24-48) Monocytes (%) (Auto) 9 % (0-9) Eosinophils (%) (Auto) 2 % (0-3) Basophils (%) (Auto) 1 % (0-3) Neutrophils # (Auto) 5.1 x10^3uL (1.8-7.7) Lymphocytes # (Auto) 1.3 x10^3/uL (1.0-4.8) Monocytes # (Auto) 0.6 x10^3/uL (0.0-1.1) Eosinophils # (Auto) 0.2 x10^3/uL (0.0-0.7) Basophils # (Auto) 0.0 x10^3/uL (0.0-0.2) Sodium Level 136 mmol/L (136-145) Potassium Level 4.2 mmol/L (3.5-5.1) Chloride Level 105 mmol/L (98-107) Carbon Dioxide Level 25 mmol/L (21-32) Anion Gap 6 (6-14) Blood Urea Nitrogen 24 mg/dL (8-26) Creatinine 1.5 mg/dL (0.7-1.3) Estimated GFR (Cockcroft-Gault) 44.6 Glucose Level 154 mg/dL (70-99) Calcium Level 8.3 mg/dL (8.5-10.1) Laboratory Tests Test 01/05/17 11:04 01/05/17 16:16 01/05/17 20:37 01/06/17 05:30 Glucose (Fingerstick) 174 mg/dL (70-99) 194 mg/dL (70-99) 146 mg/dL (70-99) White Blood Count 7.2 x10^3/uL (4.0-11.0) Red Blood Count 3.82 x10^6/uL (4.30-5.70) Hemoglobin 13.0 g/dL (13.0-17.5) Hematocrit 37.6 % (39.0-53.0) Mean Corpuscular Volume 98 fL (79-100) Mean Corpuscular Hemoglobin 34 pg (25-35) Mean Corpuscular Hemoglobin Concent 35 g/dL (31-37) Red Cell Distribution Width 14.2 % (11.5-14.5) Platelet Count 132 x10^3/uL (140-400) Neutrophils (%) (Auto) 72 % (31-73) Lymphocytes (%) (Auto) 17 % (24-48) Monocytes (%) (Auto) 9 % (0-9) Eosinophils (%) (Auto) 2 % (0-3) Basophils (%) (Auto) 1 % (0-3) Neutrophils # (Auto) 5.1 x10^3uL (1.8-7.7) Lymphocytes # (Auto) 1.3 x10^3/uL (1.0-4.8) Monocytes # (Auto) 0.6 x10^3/uL (0.0-1.1) Eosinophils # (Auto) 0.2 x10^3/uL (0.0-0.7) Basophils # (Auto) 0.0 x10^3/uL (0.0-0.2) Sodium Level 136 mmol/L (136-145) Potassium Level 4.2 mmol/L (3.5-5.1) Chloride Level 105 mmol/L (98-107) Carbon Dioxide Level 25 mmol/L (21-32) Anion Gap 6 (6-14) Blood Urea Nitrogen 24 mg/dL (8-26) Creatinine 1.5 mg/dL (0.7-1.3) Estimated GFR (Cockcroft-Gault) 44.6 Glucose Level 154 mg/dL (70-99) Calcium Level 8.3 mg/dL (8.5-10.1) Medications Current Medications Acetaminophen (Tylenol) 650 mg Q4HRS PRN PO MILD PAIN / TEMP; Start 01/03/17 at 15:30 Magnesium Hydroxide (Milk Of Magnesia) 2,400 mg DAILY PRN PO CONSTIPATION; Start 01/03/17 at 15:30 Allopurinol (Zyloprim) 100 mg DAILY PO Last administered on 01/05/17 08:37; Start 01/04/17 at 09:00; Stop 01/05/17 at 11:06; Status DC Aspirin (Ecotrin) 81 mg DAILYWBKFT PO Last administered on 01/06/17 08:25; Start 01/04/17 at 08:00 Sodium Chloride 1,000 ml @ 50 mls/hr Q20H IV Last administered on 01/06/17 04 :39; Start 01/03/17 at 15:30 Glipizide (Glucotrol) 5 mg BIDBFRMEAL PO Last administered on 01/06/17 08:26; Start 01/03/17 at 16:30 Atorvastatin Calcium (Lipitor) 20 mg QHS PO Last administered on 01/05/17 20: 28; Start 01/03/17 at 21:00 Cyanocobalamin (Vitamin B-12) 1,000 mcg DAILY PO Last administered on 08:26; Start 01/04/17 at 09:00 Multivitamins (Thera M Plus) 1 tab DAILY PO Last administered on 01/06/17 08: 25; Start 01/04/17 at 09:00 Hydroxyzine HCl (Atarax) 10 mg PRN Q6HRS PRN PO ITCHING; Start 01/03/17 at 15: 30 Multi-Ingred Cream/Lotion/Oil/ Oint (Hydrocerin) 1 gemma BID TP Last administered on 01/06/17 08:28; Start 01/03/17 at 21:00 Ondansetron HCl (Zofran) 4 mg PRN Q6HRS PRN IV NAUSEA/VOMITING; Start 01/03/17 at 15:45 Barium Sulfate (Liquid E-Z Paque) 355 ml 1X ONCE PO Last administered on 08:29; Start 01/04/17 at 08:00; Stop 01/04/17 at 08:01; Status DC Simethicone/ Sodium Bicarb/ Citric Ac (E-Z-Gas) 1 packet 1X ONCE PO ; Start at 08:00; Stop 01/04/17 at 08:01; Status DC Barium Sulfate (E-Z-Hd) 340 gm 1X ONCE PO Last administered on 01/04/17 08:33 ; Start 01/04/17 at 08:30; Stop 01/04/17 at 08:32; Status DC Pantoprazole Sodium (Protonix) 40 mg DAILYAC PO Last administered on 01/06/17 08:25; Start 01/04/17 at 11:30 Fluocinonide (Lidex) 1 gemma BID TP Last administered on 01/06/17 08:27; Start 01/04/17 at 21:00 Haloperidol Lactate (Haldol) 2 mg 1X ONCE IM ; Start 01/04/17 at 23:00; Stop at 23:01; Status DC Metoclopramide HCl (Reglan) 5 mg TIDAC PO ; Start 01/05/17 at 11:30; Stop at 11:30; Status DC Allopurinol (Zyloprim) 200 mg DAILY PO Last administered on 01/06/17 08:25; Start 01/06/17 at 09:00 Donepezil HCl (Aricept) 5 mg DAILY PO Last administered on 01/06/17 08:25; Start 01/05/17 at 12:00 Memantine (Namenda) 5 mg DAILY PO Last administered on 01/06/17 08:25; Start 01/05/17 at 12:00 Quetiapine Fumarate (SEROquel) 12.5 mg PRN Q8HRS PRN PO AGITATION; Start at 11:15 Quetiapine Fumarate (SEROquel) 25 mg PRN QHS PRN PO AGITATION; Start 01/05/17 at 21:00 Active Scripts Active Triamcinolone Acetonide 0.1% Cream (Triamcinolone Acetonide) 15 Gm Cream..g. 1 Gemma TP BID Reported Clobetasol Propionate 15 Gm Cream..g. 1 Gemma TP PRN BID PRN Pravastatin Sodium 80 Mg Tablet 1 Tab PO DAILY LAST DOSE: 08/20/15 AM NEXT DOSE: 08/21/15 Furosemide 40 Mg Tablet 1 Tab PO DAILY LAST DOSE: 08/20/15 NEXT DOSE: 08/21/15 Vitamin B-12 (Cyanocobalamin (Vitamin B-12)) 1,000 Mcg Tablet 1 Tab PO DAILY LAST DOSE: 08/20/15 NEXT DOSE: 08/21/15 Vitamin B-12 (Cyanocobalamin (Vitamin B-12)) 1,000 Mcg Tablet 1 Tab PO DAILY LAST DOSE: 08/20/15 AM NEXT DOSE: 08/21/15 Amlodipine Besylate 10 Mg Tablet 10 Mg PO DAILY LAST DOSE: 08/20/15 NEXT DOSE: 08/21/15 Allopurinol 100 Mg Tablet 100 Mg PO BID LAST DOSE: 08/20/15 AM NEXT DOSE: 08/20/15 PM Glipizide 5 Mg Tablet 1 Tab PO DAILY LAST DOSE: 08/20/15 NEXT DOSE: 08/21/15 AM Multi-Day Vitamins (Multivitamin) 1 Each Tablet 1 Each PO DAILY LAST DOSE: 08/20/15 NEXT DOSE: 08/21/15 AM Aspirin 81 Mg Tab.chew 1 Tab PO DAILY LAST DOSE: 08/20/15 NEXT DOSE: 08/21/15 AM Vitals/I & O Vital Sign - Last 24 Hours 01/05/17 01/05/17 01/05/17 01/06/17 11:00 15:00 19:00 03:00 Temp 97.7 98.3 98.1 97.2 97.7 98.3 98.1 97.2 Pulse 72 88 89 70 Resp 18 18 18 18 B/P (MAP) 119/72 (88) 120/72 (88) 143/79 (100) 147/76 (99) Pulse Ox 96 98 93 96 O2 Delivery Room Air Room Air Room Air Room Air 01/06/17 07:00 Temp 98.2 98.2 Pulse 74 Resp 20 B/P (MAP) 136/80 (98) Pulse Ox 97 O2 Delivery Room Air Intake and Output 01/06/17 01/06/17 01/07/17 15:00 23:00 07:00 Intake Total 480 ml Balance 480 ml Assessment Presbyesophagus. Dyspepsia, better. Plan of Care Note Agree with plans to dismiss. Would continue PPI as outpatient, probably chronically. GOOD STINSON MD Jan 06, 2017 10:47
--- NOTE | 2017-01-06 10:58 | PDOC ---
PROGRESS NOTES Subjective Subjective feels better. eating and drinking well. renal function at baseline. declined prn seroquel per nurse. discussed with and daughter and dr. dozier. drinking fluids well. ready for dismissal today Objective Objective Vital Signs Date Time Temp Pulse Resp B/P (MAP) Pulse Ox O2 Delivery O2 Flow Rate FiO2 01/06/17 07:00 98.2 74 20 136/80 (98) 97 Room Air 98.2 Intake and Output 01/07/17 07:00 Intake Total 480 ml Balance 480 ml Intake Oral 480 ml Physical Exam Abdomen: Soft Heart: Regular rate, Normal S1, Normal S2 Extremities: No edema General: Alert HEENT: Atraumatic Lungs: Clear to auscultation Neuro: Normal speech, Other (more coherent today) Psych/Mental Status: Mood NL Skin: Other (abdominal rash fading) Assessment Assessment 1. Acute kidney injury resolved on top of chronic kidney disease stage 3. 2. Diabetes mellitus type 2 with diabetic nephropathy. 3. Chronic kidney disease stage 3. 4. Hypertension. 5. Hyperlipidemia. 6. History of gout. 7. Coronary artery disease with previous coronary bypass graft surgery. 8. History of dilatation of esophageal stricture in 2014. 9. Leukocytosis.resolved 10. Rash with dry skin.lidex cream per circuit walker 11. suspect alzheimers disease. rule out NPH 12. Metabolic encephalopathy.resolved Plan Plan of Care d/c iv fluids dismiss today Comment Review of Relevant I have reviewed the following items otis (where applicable) has been applied. Labs Laboratory Tests Test 01/04/17 11:58 01/04/17 16:53 01/04/17 20:00 01/05/17 04:38 Glucose (Fingerstick) 187 mg/dL (70-99) 133 mg/dL (70-99) 126 mg/dL (70-99) Sodium Level 137 mmol/L (136-145) Potassium Level 4.4 mmol/L (3.5-5.1) Chloride Level 105 mmol/L (98-107) Carbon Dioxide Level 24 mmol/L (21-32) Anion Gap 8 (6-14) Blood Urea Nitrogen 35 mg/dL (8-26) Creatinine 1.7 mg/dL (0.7-1.3) Estimated GFR (Cockcroft-Gault) 38.6 Glucose Level 147 mg/dL (70-99) Calcium Level 8.5 mg/dL (8.5-10.1) Test 01/05/17 07:42 01/05/17 11:04 01/05/17 16:16 01/05/17 20:37 Glucose (Fingerstick) 201 mg/dL (70-99) 174 mg/dL (70-99) 194 mg/dL (70-99) 146 mg/dL (70-99) Test 01/06/17 05:30 White Blood Count 7.2 x10^3/uL (4.0-11.0) Red Blood Count 3.82 x10^6/uL (4.30-5.70) Hemoglobin 13.0 g/dL (13.0-17.5) Hematocrit 37.6 % (39.0-53.0) Mean Corpuscular Volume 98 fL (79-100) Mean Corpuscular Hemoglobin 34 pg (25-35) Mean Corpuscular Hemoglobin Concent 35 g/dL (31-37) Red Cell Distribution Width 14.2 % (11.5-14.5) Platelet Count 132 x10^3/uL (140-400) Neutrophils (%) (Auto) 72 % (31-73) Lymphocytes (%) (Auto) 17 % (24-48) Monocytes (%) (Auto) 9 % (0-9) Eosinophils (%) (Auto) 2 % (0-3) Basophils (%) (Auto) 1 % (0-3) Neutrophils # (Auto) 5.1 x10^3uL (1.8-7.7) Lymphocytes # (Auto) 1.3 x10^3/uL (1.0-4.8) Monocytes # (Auto) 0.6 x10^3/uL (0.0-1.1) Eosinophils # (Auto) 0.2 x10^3/uL (0.0-0.7) Basophils # (Auto) 0.0 x10^3/uL (0.0-0.2) Sodium Level 136 mmol/L (136-145) Potassium Level 4.2 mmol/L (3.5-5.1) Chloride Level 105 mmol/L (98-107) Carbon Dioxide Level 25 mmol/L (21-32) Anion Gap 6 (6-14) Blood Urea Nitrogen 24 mg/dL (8-26) Creatinine 1.5 mg/dL (0.7-1.3) Estimated GFR (Cockcroft-Gault) 44.6 Glucose Level 154 mg/dL (70-99) Calcium Level 8.3 mg/dL (8.5-10.1) Laboratory Tests Test 01/05/17 11:04 01/05/17 16:16 01/05/17 20:37 01/06/17 05:30 Glucose (Fingerstick) 174 mg/dL (70-99) 194 mg/dL (70-99) 146 mg/dL (70-99) White Blood Count 7.2 x10^3/uL (4.0-11.0) Red Blood Count 3.82 x10^6/uL (4.30-5.70) Hemoglobin 13.0 g/dL (13.0-17.5) Hematocrit 37.6 % (39.0-53.0) Mean Corpuscular Volume 98 fL (79-100) Mean Corpuscular Hemoglobin 34 pg (25-35) Mean Corpuscular Hemoglobin Concent 35 g/dL (31-37) Red Cell Distribution Width 14.2 % (11.5-14.5) Platelet Count 132 x10^3/uL (140-400) Neutrophils (%) (Auto) 72 % (31-73) Lymphocytes (%) (Auto) 17 % (24-48) Monocytes (%) (Auto) 9 % (0-9) Eosinophils (%) (Auto) 2 % (0-3) Basophils (%) (Auto) 1 % (0-3) Neutrophils # (Auto) 5.1 x10^3uL (1.8-7.7) Lymphocytes # (Auto) 1.3 x10^3/uL (1.0-4.8) Monocytes # (Auto) 0.6 x10^3/uL (0.0-1.1) Eosinophils # (Auto) 0.2 x10^3/uL (0.0-0.7) Basophils # (Auto) 0.0 x10^3/uL (0.0-0.2) Sodium Level 136 mmol/L (136-145) Potassium Level 4.2 mmol/L (3.5-5.1) Chloride Level 105 mmol/L (98-107) Carbon Dioxide Level 25 mmol/L (21-32) Anion Gap 6 (6-14) Blood Urea Nitrogen 24 mg/dL (8-26) Creatinine 1.5 mg/dL (0.7-1.3) Estimated GFR (Cockcroft-Gault) 44.6 Glucose Level 154 mg/dL (70-99) Calcium Level 8.3 mg/dL (8.5-10.1) Medications Current Medications Acetaminophen (Tylenol) 650 mg Q4HRS PRN PO MILD PAIN / TEMP; Start 01/03/17 at 15:30 Magnesium Hydroxide (Milk Of Magnesia) 2,400 mg DAILY PRN PO CONSTIPATION; Start 01/03/17 at 15:30 Allopurinol (Zyloprim) 100 mg DAILY PO Last administered on 01/05/17 08:37; Start 01/04/17 at 09:00; Stop 01/05/17 at 11:06; Status DC Aspirin (Ecotrin) 81 mg DAILYWBKFT PO Last administered on 01/06/17 08:25; Start 01/04/17 at 08:00 Sodium Chloride 1,000 ml @ 50 mls/hr Q20H IV Last administered on 01/06/17 04 :39; Start 01/03/17 at 15:30 Glipizide (Glucotrol) 5 mg BIDBFRMEAL PO Last administered on 01/06/17 08:26; Start 01/03/17 at 16:30 Atorvastatin Calcium (Lipitor) 20 mg QHS PO Last administered on 01/05/17 20: 28; Start 01/03/17 at 21:00 Cyanocobalamin (Vitamin B-12) 1,000 mcg DAILY PO Last administered on 08:26; Start 01/04/17 at 09:00 Multivitamins (Thera M Plus) 1 tab DAILY PO Last administered on 01/06/17 08: 25; Start 01/04/17 at 09:00 Hydroxyzine HCl (Atarax) 10 mg PRN Q6HRS PRN PO ITCHING; Start 01/03/17 at 15: 30 Multi-Ingred Cream/Lotion/Oil/ Oint (Hydrocerin) 1 gemma BID TP Last administered on 01/06/17 08:28; Start 01/03/17 at 21:00 Ondansetron HCl (Zofran) 4 mg PRN Q6HRS PRN IV NAUSEA/VOMITING; Start 01/03/17 at 15:45 Barium Sulfate (Liquid E-Z Paque) 355 ml 1X ONCE PO Last administered on 08:29; Start 01/04/17 at 08:00; Stop 01/04/17 at 08:01; Status DC Simethicone/ Sodium Bicarb/ Citric Ac (E-Z-Gas) 1 packet 1X ONCE PO ; Start at 08:00; Stop 01/04/17 at 08:01; Status DC Barium Sulfate (E-Z-Hd) 340 gm 1X ONCE PO Last administered on 01/04/17 08:33 ; Start 01/04/17 at 08:30; Stop 01/04/17 at 08:32; Status DC Pantoprazole Sodium (Protonix) 40 mg DAILYAC PO Last administered on 01/06/17 08:25; Start 01/04/17 at 11:30 Fluocinonide (Lidex) 1 gemma BID TP Last administered on 01/06/17 08:27; Start 01/04/17 at 21:00 Haloperidol Lactate (Haldol) 2 mg 1X ONCE IM ; Start 01/04/17 at 23:00; Stop at 23:01; Status DC Metoclopramide HCl (Reglan) 5 mg TIDAC PO ; Start 01/05/17 at 11:30; Stop at 11:30; Status DC Allopurinol (Zyloprim) 200 mg DAILY PO Last administered on 01/06/17 08:25; Start 01/06/17 at 09:00 Donepezil HCl (Aricept) 5 mg DAILY PO Last administered on 01/06/17 08:25; Start 01/05/17 at 12:00 Memantine (Namenda) 5 mg DAILY PO Last administered on 01/06/17 08:25; Start 01/05/17 at 12:00 Quetiapine Fumarate (SEROquel) 12.5 mg PRN Q8HRS PRN PO AGITATION; Start at 11:15 Quetiapine Fumarate (SEROquel) 25 mg PRN QHS PRN PO AGITATION; Start 01/05/17 at 21:00 Active Scripts Active Triamcinolone Acetonide 0.1% Cream (Triamcinolone Acetonide) 15 Gm Cream..g. 1 Gemma TP BID Reported Clobetasol Propionate 15 Gm Cream..g. 1 Gemma TP PRN BID PRN Pravastatin Sodium 80 Mg Tablet 1 Tab PO DAILY LAST DOSE: 08/20/15 AM NEXT DOSE: 08/21/15 AM Furosemide 40 Mg Tablet 1 Tab PO DAILY LAST DOSE: 08/20/15 NEXT DOSE: 08/21/15 AM Vitamin B-12 (Cyanocobalamin (Vitamin B-12)) 1,000 Mcg Tablet 1 Tab PO DAILY LAST DOSE: 08/20/15 AM NEXT DOSE: 08/21/15 AM Vitamin B-12 (Cyanocobalamin (Vitamin B-12)) 1,000 Mcg Tablet 1 Tab PO DAILY LAST DOSE: 08/20/15 NEXT DOSE: 08/21/15 AM Amlodipine Besylate 10 Mg Tablet 10 Mg PO DAILY LAST DOSE: 08/20/15 NEXT DOSE: 08/21/15 Allopurinol 100 Mg Tablet 100 Mg PO BID LAST DOSE: 08/20/15 NEXT DOSE: 08/20/15 PM Glipizide 5 Mg Tablet 1 Tab PO DAILY LAST DOSE: 08/20/15 NEXT DOSE: 08/21/15 AM Multi-Day Vitamins (Multivitamin) 1 Each Tablet 1 Each PO DAILY LAST DOSE: 08/20/15 NEXT DOSE: 08/21/15 AM Aspirin 81 Mg Tab.chew 1 Tab PO DAILY LAST DOSE: 08/20/15 NEXT DOSE: 08/21/15 AM Vitals/I & O Vital Sign - Last 24 Hours 01/05/17 01/05/17 01/05/17 01/06/17 11:00 15:00 19:00 03:00 Temp 97.7 98.3 98.1 97.2 97.7 98.3 98.1 97.2 Pulse 72 88 89 70 Resp 18 18 18 18 B/P (MAP) 119/72 (88) 120/72 (88) 143/79 (100) 147/76 (99) Pulse Ox 96 98 93 96 O2 Delivery Room Air Room Air Room Air Room Air 01/06/17 07:00 Temp 98.2 98.2 Pulse 74 Resp 20 B/P (MAP) 136/80 (98) Pulse Ox 97 O2 Delivery Room Air Intake and Output 01/06/17 01/06/17 01/07/17 15:00 23:00 07:00 Intake Total 480 ml Balance 480 ml GOOD ODOM MD Jan 06, 2017 10:58
[2017-01-06 11:00] VITALS: BP 139/74
--- NOTE | 2017-01-06 11:09 | DISCH ---
DISCHARGE INSTRUCTIONS Condition on Discharge Condition on Discharge: Stable Activity After Discharge Activity Instructions for Disc: Resume previous activity Diet after Discharge Diet after Discharge: Diabetic No Calorie Level Contacting the DRNatasha after DC Call your doctor for: If your condition worsens Follow-Up Follow up with: dr. odom this week GOOD ODOM MD Jan 06, 2017 11:09
[2017-01-06] MEDS ORDERED: MINERAL OIL TP (11:12)
[2017-01-06] MEDS ORDERED: GLIP5TAB10 PO (11:12)
[2017-01-06] MEDS ORDERED: PANT40TA5 PO (11:12)
[2017-01-06] MEDS ORDERED: FLUO15CR TP (11:12)
[2017-01-06] MEDS ORDERED: DONE5TAB56 PO (11:12)
[2017-01-06] MEDS ORDERED: PETROLATUM TP (11:12)
[2017-01-06] MEDS ORDERED: MEMA5TAB14 PO (11:12)
--- NOTE | 2017-01-06 11:20 | PDOC ---
Provider Note Provider Note discharge summary dictated # [id number] GOOD ODOM MD Jan 06, 2017 11:20
--- NOTE | 2017-01-06 20:49 | DS ---
DATE OF DISCHARGE: 01/06/2017 CONSULTANTS: Dr. Good Mitchell, Dr. Justina Goodson, Dr. Mtz for Dr. Vieira and also Dr. Sim. FINAL DIAGNOSES: 1. Acute kidney injury on top of chronic kidney disease stage 3. The cause of the acute kidney injury is decreased fluid intake, in the setting of taking furosemide. 2. Diabetes mellitus type 2 with diabetic nephropathy. 3. Eczematous rash of the abdomen and back. 4. Presbyesophagus. 5. Chronic kidney disease stage 3. 6. Hypertension. 7. Hyperlipidemia. 8. History of gout. 9. Coronary artery disease with previous coronary bypass graft surgery. 10. Leukocytosis, which resolved. 11. Alzheimer's disease. 12. Metabolic encephalopathy, which resolved. 13. Gastroesophageal reflux disease. HOSPITAL COURSE: The patient is an 86-year-old white male with a history of coronary artery disease, diabetes mellitus type 2 with diabetic nephropathy, chronic kidney disease stage 3 with a baseline serum creatinine of about 1.5, with a history of hypertension, and hyperlipidemia, seen in the office on 01/01/2017 for a followup visit. He was noted to have a rash on his trunk and was prescribed a steroid cream. He had labs done which showed a BUN of 56, creatinine 2.06, with a baseline BUN in the mid 30s and a baseline serum creatinine of 1.5. He was also noted to be more confused and had a 3-week history of solid food dysphagia, and not eating or drinking very well. He does take furosemide on a daily basis at home also. He was sent to the Emergency Room where the BUN was 54, creatinine was 2.2, and his white count was elevated at 14.2, and denied any cough or dysuria, diarrhea or abdominal pain. He was admitted to the hospital with acute kidney injury and had a metabolic encephalopathy. He was started on a full-liquid diet. He was treated with IV fluids. His BUN and creatinine did improve back to baseline. When he left the hospital, his BUN was 24, creatinine 1.5. His blood sugars were under good control. He was seen by various doctors, including Dr. iSm for his acute kidney injury, and his ultrasound of his kidneys was negative for hydronephrosis. Urinalysis was unremarkable for any urinary tract infection. Leukocytosis resolved. Seen by Dr. Justina Goodson for Dermatology and was prescribed Lidex cream with improvement of his eczematous rash in his abdomen and back. Seen by Dr. Mitchell in consultation for GI and he ordered a barium swallow, which was negative. He complained of some right lower quadrant abdominal pain apparently during his hospital course and the ultrasound of the abdomen was negative also, in addition to the renal ultrasound which was negative for hydronephrosis. In addition, he was having problems with dementia and had a metabolic encephalopathy. The metabolic encephalopathy improved, as his renal function improved with IV hydration. His full-liquid diet was advanced to solid food, as his barium swallow was unremarkable. He was started on Protonix. The family did not want him to take Reglan, which was discontinued. Yesterday, his diet was advanced to solid foods, and he was able to eat and drink well, his fluid intake was good, and IV fluids will be discontinued. His blood sugars were under satisfactory control. He was started on Aricept and Namenda for his Alzheimer's disease, and Protonix for gastroesophageal reflux disease. He therefore will be dismissed to home on allopurinol 200 mg every day, aspirin 81 mg every day, Lidex cream 0.05% applied b.i.d. to his rash for 14 days, glipizide 5 mg b.i.d., lisinopril 20 mg every day, multiple vitamin every day, pravastatin 80 mg every day, vitamin B12 1000 mcg every day, and he will also be dismissed on Protonix 40 mg everyday, Namenda 5 mg every day which can be slowly increased, Lidex cream 0.05% applied to the rash b.i.d. and Aricept 5 mg every day. He will see Dr. Odom in the office within 1 week. He is dismissed on a diabetic diet and encouraged to drink plenty of fluids. His furosemide has been discontinued. He was seen by a neurologist also, Dr. Mtz, for Dr. Vieira who stated that he had some atrophy noted on the CAT scan of the brain. He did not think he had any hydrocephalus and was not having any problems with his gait dysfunction or bladder incontinence. The family did snot want a spinal tap or to be very aggressive, so he is being treated for Alzheimer's disease, as his memory problems have been going on for 2 years, and he was started on, as mentioned, Namenda and Aricept. GOOD ODOM MD DR: Desiree JOB#: [id number] / [id number]
== END 2017-01-06 12:15 | disposition home or self-care (01) | DRG 682 ==
LOC: ER 13:38 → 5 SOUTH 16:05
PROVIDERS: ADMIT Internal Medicine; ATTEND Internal Medicine
DX: N17.9 Acute kidney failure, unspecified (principal); G93.41 Metabolic encephalopathy; E11.21 Type 2 diabetes mellitus with diabetic nephropathy; E11.40 Type 2 diabetes mellitus with diabetic neuropathy, unspecified; D72.829 Elevated white blood cell count, unspecified; E11.22 Type 2 diabetes mellitus with diabetic chronic kidney disease; E78.00 Pure hypercholesterolemia, unspecified; E78.5 Hyperlipidemia, unspecified; E86.0 Dehydration; F02.80 Dementia in other diseases classified elsewhere, unspecified severity, without behavioral disturbance, psychotic disturbance, mood disturbance, and anxiety; G30.9 Alzheimer's disease, unspecified; K57.90 Diverticulosis of intestine, part unspecified, without perforation or abscess without bleeding; R41.89 Other symptoms and signs involving cognitive functions and awareness; I12.9 Hypertensive chronic kidney disease with stage 1 through stage 4 chronic kidney disease, or unspecified chronic kidney disease; I25.10 Atherosclerotic heart disease of native coronary artery without angina pectoris; K22.8 Other specified diseases of esophagus; K21.9 Gastro-esophageal reflux disease without esophagitis; L30.9 Dermatitis, unspecified; M10.9 Gout, unspecified; N18.3 Chronic kidney disease, stage 3 (moderate); R13.19 Other dysphagia; Z80.0 Family history of malignant neoplasm of digestive organs; Z82.0 Family history of epilepsy and other diseases of the nervous system; Z82.49 Family history of ischemic heart disease and other diseases of the circulatory system; Z95.1 Presence of aortocoronary bypass graft; Z83.3 Family history of diabetes mellitus; Z86.010 Personal history of colon polyps; Z79.899 Other long term (current) drug therapy; Z79.82 Long term (current) use of aspirin; Z98.52 Vasectomy status; Z79.84 Long term (current) use of oral hypoglycemic drugs; T50.1X5A Adverse effect of loop [high-ceiling] diuretics, initial encounter
CPT/HCPCS: 36415; 70450; 71010; 74220; 76705; 76770; 80048; 80076; 81001; 82553; 82962; 85025; 93005; J7030; 99285-25